=== PATIENT | male | born 1955 | race Caucasian/White ===

== ENCOUNTER → 2019-06-13 09:11 | Outpatient (BNVA) | payer OTHER, SELFPAY | PROVIDERS: Family Provider Family Medicine; PCP Family Medicine; Referring Provider Family Medicine; Visit Provider Internal Medicine Rheumatology | DX: M19.90 Unspecified osteoarthritis, unspecified site (principal); Z11.59 Encounter for screening for other viral diseases; R79.82 Elevated C-reactive protein (CRP); Z79.899 Other long term (current) drug therapy | CPT/HCPCS: 36415; 82306; 82565; 85651; 86140; 86431; 86480; 86704; 86803; 87340; 99204 ==

== ENCOUNTER 2019-06-14 10:15 | Outpatient (CLI) | payer OTHER, SELFPAY ==
--- NOTE | 2019-06-14 10:21 | XR_ITS ---
WS: [id number] RIGHT HAND: 3 VIEW(S) TECHNIQUE: PA, oblique and lateral. HISTORY: inflammatory arthritis COMPARISON: None available. No acute fracture or dislocation. Mild narrowing of the interphalangeal joints. No periarticular osteopenia. There may be some mild sof t tissue swelling around the PIP joints. Ulnar styloid is without erosions. Small osseous densities distal to the ulnar styloid may be from ol d avulsion fractures. No erosions. XR/XR hand RT min 3V* [id number] IMPRESSION: 1. Mild narrowing of the interphalangeal joints without erosions. 2. No osteopenia.
--- NOTE | 2019-06-14 10:21 | XR_ITS ---
WS: [id number] LUMBAR SPINE: 3 VIEWS TECHNIQUE: AP, lateral and L5-S1 spot. HISTORY: inflammatory arthritis COMPARISON: 09/06/2014 Mild LEFT convex curvature of the lumbar spine. Mild straightening of lumbar lordosis on the lateral projection. L4 anterolisthesis by 5.1 mm. Severe degenerative disc disease at L4-5 and moderate at L5 -S1. No fractures. Facet joint arthropathy is moderate at L5-S1. Pedicles are all identified. Again n oted is very minimal sclerosis along the SI joints. XR/XR lumbar spine 2-3V* [id number] IMPRESSION: 1. Mild degenerative spondylosis lumbar spine. 2. L4 anterolisthesis by 5.1 mm. 3. Degenerative disc disease significant at L4-5 and L5-S1 with mild progressi on since 2014.
--- NOTE | 2019-06-14 10:21 | XR_ITS ---
WS: [id number] RIGHT SHOULDER: 3 VIEW(S) TECHNIQUE: Internal and external rotation with Y view. HISTORY: inflammatory arthritis COMPARISON: None available. No fracture or dislocation or soft tissue abnormality. Mild narrowing of the AC joint. There is also mild narrowing of the glenohumeral joint. Moderate size osteophyte from the medial inferior humeral head abutting the glenoid. No erosions. XR/XR shoulder RT min 2V* [id number] IMPRESSION: Mild changes of osteoarthritis at the AC joint and glenohumeral joint.
--- NOTE | 2019-06-14 10:21 | XR_ITS ---
WS: [id number] RIGHT KNEE: 3 VIEW(S) TECHNIQUE: AP, oblique(s) and lateral. HISTORY: inflammatory arthritis COMPARISON: None available. No fracture or dislocation. No joint space narrowing or osteophytes. Fragmentation of the anterior tibial tubercle. Probably due to an old injury with healing. No acute f indings. Small suprapatellar effusion. XR/XR knee RT 3V* [id number] IMPRESSION: 1. Small suprapatellar effusion can be associated with inflammatory arthritis. 2. No erosions or significant joint space narrowing.
--- NOTE | 2019-06-14 10:21 | XR_ITS ---
WS: [id number] LEFT HAND: 3 VIEW(S) TECHNIQUE: PA, oblique and lateral. HISTORY: inflammatory arthritis COMPARISON: None available. No acute fracture or dislocation. No soft tissue or bone abnormality. No periarticular osteopenia or erosions. Indeterminate for mild soft tissue swelling at the PIP joint s. No ulnar styloid erosion. XR/XR hand LT min 3V* [id number] IMPRESSION: No significant changes associated with inflammatory arthritis.
--- NOTE | 2019-06-14 10:21 | XR_ITS ---
WS: [id number] CERVICAL SPINE 3 VIEWS HISTORY: inflammatory arthritis COMPARISON: None available. C3 retrolisthesis by 2.2 mm. Multilevel mild to moderate facet joint arthropathy and disc space narro wing. No fractures or bone destruction. Lateral masses are aligned and the odontoid is intact. XR/XR cervical spine 3V* [id number] IMPRESSION: Mild to moderate cervical spondylosis. No fractures.
--- NOTE | 2019-06-14 10:21 | XR_ITS ---
WS: [id number] PELVIS: AP VIEW SUBMITTED HISTORY: inflammatory arthritis COMPARISON: None available. Bones and soft tissues of the pelvis are intact. No fracture or dislocation. Mild sclerosis along the SI joints, LEFT greater than RIGHT. No erosions. No enthesopathies. Soft tissue calcifications are p robably phleboliths. Mild bilateral hip joint arthritis. XR/XR pelvis 1-2V* 10630 IMPRESSION: Minimal focal sclerosis along the SI joints, LEFT greater than RIGHT without er osions.
== END 2019-06-14 10:16 | disposition home or self-care (01) ==
LOC: WPI 10:19
PROVIDERS: Family Provider Family Medicine; PCP Family Medicine; Referring Provider Family Medicine; Visit Provider Internal Medicine Rheumatology
DX: M19.011 Primary osteoarthritis, right shoulder (principal); M47.896 Other spondylosis, lumbar region; M47.897 Other spondylosis, lumbosacral region; M25.461 Effusion, right knee; M47.892 Other spondylosis, cervical region
CPT/HCPCS: 72040; 72100; 72170; 73030; 73130; 73562

== ENCOUNTER → 2020-01-08 14:12 | Outpatient (BNVA) | payer BC, SELFPAY | PROVIDERS: Family Provider Family Medicine; PCP Family Medicine; Visit Provider Nurse Practitioner Family | DX: Z11.59 Encounter for screening for other viral diseases (principal) | CPT/HCPCS: 87635 ==

== ENCOUNTER 2020-04-22 09:17 | Emergency (ER) | payer BC, SELFPAY ==
[2020-04-22 09:25] VITALS: BP 165/80; PULSE 68; RESP 18; TEMP 36.3; O2SAT 97; BMI 27.7
[2020-04-22 09:33] VITALS: BP 139/85; PULSE 67; RESP 18; O2SAT 97
--- NOTE | 2020-04-22 09:56 | W.ED.CHESTPA ---
HPI - Chest Pain General: Chief Complaint: Chest Pain Stated Complaint: CP Time Seen by Provider: 04/22/20 09:24 History of Present Illness: HPI narrative: 64-year-old male presents to the emergency room with complaint of right-sided chest pain and right lower rib pain with cough movement or episodes of sneezing. A week ago prior to this patient had some chest discomfort with nausea vomiting and diarrhea that seemed to resolve but he still has some right lower rib pain. No further fever sweats or chills he has a slight cough but it is not been productive. He notes that when he first gets up in the morning he is more stiff than usual. He was given nitro for this but that did not seem to help he actually swallowed the sublingual nitro pill and it made him nauseous and he threw up. He has been seen by cardiology and was supposed to be getting a stress test but that has not yet been scheduled. He notices the pain is worse with deep inspiration and with movement. He has not had any rash. MD complaint: chest discomfort Onset (ago): day(s) Timing of current episode: episodic Onset: during rest and during exertion Pain location: right chest Pain radiation: none Severity: moderate Quality: tightness and aching Relieving factors: nothing Exacerbating factors: inspiration and movement Associated symptoms: Deny abdominal pain, dyspnea, fever(s), nausea or vomiting Review of Systems Const: Reports: body aches; Denies: fever(s) or chills ENMT: Denies: throat pain, ear or mastoid pain, nasal discharge or nasal congestion Card: Denies: chest pain, edema, dyspnea on exertion or orthopnea Resp: Reports: non-productive cough; Denies: dyspnea or productive cough GI: Denies: abdominal pain, nausea, vomiting, hematemesis, coffee ground emesis, diarrhea, constipation, bloating, hematochezia or melena : Denies: flank pain, dysuria, urinary frequency or urinary urgency Skin/Breast: Denies: rash or pruritus PFSH ED PFSH: Medical History (Updated 04/22/20 @ 13:14 by Som Del Rio DO) Arthralgia of back Arthralgia of both hands Arthralgia of cervical spine Degenerative joint disease (DJD) of lumbar spine Erectile dysfunction Shoulder pain with history of repair of rotator cuff Surgical History H/O arthroscopy of right knee History of arthroscopy of right shoulder Family History Unknown Arthritis Hypertension Father Cancer Denies family history of Systemic lupus erythematosus, unspecified Rheumatoid arthritis Diabetes CAD (coronary artery disease) Stroke Social History Smoking and tobacco status: never smoked Alcohol intake: never Marital status: History of recent travel: No Physical Exam Const: COMMON NORMALS: no acute distress GENERAL APPEARANCE: cooperative and comfortable ORIENTATION/CONSCIOUSNESS: Yes awake, Yes oriented to person, Yes oriented to place and Yes oriented to time Eye: COMMON NORMALS: Equal, round and reactive pupils present, EOMs intact bilaterally, conjunctivae normal and no scleral icterus CONJUNCTIVA: Yes conjunctivae normal PUPIL: Yes Equal, round and reactive pupils present Neck/C-Spine: COMMON NORMALS: no JVD Lymph: LYMPHATIC: no lymphadenopathy noted and no lymphedema noted Resp: COMMON NORMALS: normal respiratory effort, No retractions, No use of accessory muscles and clear to auscultation bilaterally AUSCULTATION: clear to auscultation bilaterally Cardio: COMMON NORMALS: no JVD, regular rate, regular rhythm and No murmurs present (Cardio) RATE: regular rate RHYTHM: regular rhythm GI: COMMON NORMALS: Soft to palpation and No hepatosplenomegaly present AUSCULTATION: Yes normoactive bowel sounds PALPATION: Yes Soft to palpation, No Tenderness to palpation present (GI), No Guarding due to palpation present (GI) and Yes No hepatosplenomegaly present Extremity: COMMON NORMALS: normal to inspection, capillary refill normal, no clubbing, cyanosis or edema, no calf tenderness and no pedal edema Neuro: SENSORIUM/ORIENTATION: Yes oriented to person, Yes oriented to place and Yes oriented to time Skin: COMMON NORMALS: no rashes or lesions noted GENERAL SKIN EXAM: no rashes or lesions noted Course Vital Signs: Vital signs: Vital Signs Temperature 97.4 F L 04/22/20 09:25 Pulse Rate 67 04/22/20 09:33 Respiratory Rate 18 04/22/20 09:33 Blood Pressure 139/85 04/22/20 09:33 Pulse Oximetry 97 04/22/20 09:33 MDM - Chest Pain MDM Narrative: Medical decision making narrative: Reviewed findings with the patient his CTA is negative he does have a pending PCR for Covid. Discussed limiting antibody probably will not be very helpful as its not definitive to place him on a timeframe there tends to be a large number of crossover reactions so cannot even be certain that it reflects previous infection additionally it is unknown the level at which immunity is confirmed and it is not a quantitative test at this point. I recommend that he follow-up with Dr. Browning his primary care doctor his C RP is still elevated he has had problems with this in the past he has seen rheumatology I suspect he may need to see them again to reevaluate give him short-term pain medications to him for management of symptoms. Lab Data: Attestation: I reviewed the patient's lab results. Labs: Lab Results 04/22/20 04/22/20 04/22/20 Range/Units 09:50 09:50 09:50 WBC 6.0 (4.0-10.0) 10^3/ uL RBC 4.69 (4.1-5.3) 10^6/u L Hgb 13.9 (11.7-16.6) g/dL Hct 42.8 (42.0-52.0) % MCV 91.3 (80-94) fL MCH 29.6 (28.0-34.0) pg MCHC 32.5 (30.0-36.0) g/dL RDW 13.6 (12.1-15.1) % Plt Count 246 (130-400) 10^3/c mm MPV 9.7 (7.4-10.4) fL Neut % (Auto) 68.8 % Lymph % (Auto) 17.4 % Elbert % (Auto) 11.6 % Eos % (Auto) 1.2 % Baso % (Auto) 0.8 % Neut # (Auto) 4.14 (1.8-7.7) 10^3/u L Lymph # (Auto) 1.1 (0.8-4.8) 10^3/u L Elbert # (Auto) 0.7 (0.2-0.9) 10^3/u L Eos # (Auto) 0.1 (0.0-0.8) 10^3/u L Baso # (Auto) 0.1 (0.0-0.1) 10^3/u L Nucleated RBC % (a uto) 0 % Nucleated RBCs # 0.0 /100WBC Sodium 138 (136-145) mmol/L Potassium 4.5 (3.5-5.1) mmol/L Chloride 100 (98-107) mmol/L Carbon Dioxide 28 (22-29) mmol/L Anion Gap 14.5 (5-19) BUN 15 (8-23) mg/dL Creatinine 1.0 (0.7-1.2) mg/dL GFR Calculation 75.2 L (90-130) mL/min Glucose 112 (65-115) mg/dL Calculated Osmolal ity 288 (285-295) mOsm/k g Calcium 9.2 (8.5-10.5) mg/dL Total Bilirubin 0.3 (0.15-1.2) mg/dL AST 30 (0-40) U/L ALT 72 H (0-41) U/L Alkaline Phosphata se 116 (40-130) IU/L Creatine Kinase 101 (39-308) U/L Troponin T Baselin e 8 (0-15) ng/L Troponin T 120 Min [place] (0-15) ng/L Delta Troponin T (0-10) ABS# C-Reactive Protein 56.3 H (0.0-4.9) mg/L Total Protein 7.1 (6.6-8.7) g/dL Albumin 4.2 (3.5-5.2) g/dL Globulin 2.9 (1.3-4.6) g/dL Urine Color (Yellow) Urine Appearance (CLEAR) Urine pH (5-7) Ur Specific Gravit y (1.005-1.030) Urine Protein (Negative) Urine Glucose (UA) (Normal) Urine Ketones (Negative) Urine Blood (Negative) Urine Nitrate (Negative) Urine Bilirubin (Negative) Urine Urobilinogen (Negative) mg/dL Ur Leukocyte Nguyen ase (Negative) 04/22/20 04/22/20 Range/Units 10:34 11:50 WBC (4.0-10.0) 10^3/ uL RBC (4.1-5.3) 10^6/u L Hgb (11.7-16.6) g/dL Hct (42.0-52.0) % MCV (80-94) fL MCH (28.0-34.0) pg MCHC (30.0-36.0) g/dL RDW (12.1-15.1) % Plt Count (130-400) 10^3/c mm MPV (7.4-10.4) fL Neut % (Auto) % Lymph % (Auto) % Elbert % (Auto) % Eos % (Auto) % Baso % (Auto) % Neut # (Auto) (1.8-7.7) 10^3/u L Lymph # (Auto) (0.8-4.8) 10^3/u L Elbert # (Auto) (0.2-0.9) 10^3/u L Eos # (Auto) (0.0-0.8) 10^3/u L Baso # (Auto) (0.0-0.1) 10^3/u L Nucleated RBC % (a uto) % Nucleated RBCs # /100WBC Sodium (136-145) mmol/L Potassium (3.5-5.1) mmol/L Chloride (98-107) mmol/L Carbon Dioxide (22-29) mmol/L Anion Gap (5-19) BUN (8-23) mg/dL Creatinine (0.7-1.2) mg/dL GFR Calculation (90-130) mL/min Glucose (65-115) mg/dL Calculated Osmolal ity (285-295) mOsm/k g Calcium (8.5-10.5) mg/dL Total Bilirubin (0.15-1.2) mg/dL AST (0-40) U/L ALT (0-41) U/L Alkaline Phosphata se (40-130) IU/L Creatine Kinase (39-308) U/L Troponin T Baselin e (0-15) ng/L Troponin T 120 Min [place] 7.81 (0-15) ng/L Delta Troponin T -0.19 L (0-10) ABS# C-Reactive Protein (0.0-4.9) mg/L Total Protein (6.6-8.7) g/dL Albumin (3.5-5.2) g/dL Globulin (1.3-4.6) g/dL Urine Color Straw (Yellow) Urine Appearance Clear (CLEAR) Urine pH 6 (5-7) Ur Specific Gravit y 1.005 (1.005-1.030) Urine Protein Neg (Negative) Urine Glucose (UA) Norm (Normal) Urine Ketones Negative (Negative) Urine Blood Neg (Negative) Urine Nitrate Negative (Negative) Urine Bilirubin Neg (Negative) Urine Urobilinogen Norm (Negative) mg/dL Ur Leukocyte Nguyen ase Negative (Negative) Discharge Plan Discharge Patient Disposition: Home Clinical Impression: Arthralgia of back, Degenerative joint disease (DJD) of lumbar spine, Atypical chest pain, Suspected 2019-nCoV infection Condition: Stable Prescriptions: New Percocet 5-325 mg tablet 1 tab PO Q6H PRN (Reason: pain) Qty: 20 RF: 0 No Action betamethasone acet,sod phos [Celestone Soluspan] 6 mg/mL suspension 6 mg intra-articular ONCE PRN (Reason: pain (scale score 1-3)) Qty: 1 RF: 0 lidocaine (PF) 10 mg/mL (1 %) solution 10 mg intra-articular ONCE PRN (Reason: anesthesia) Qty: 2 RF: 0 cod liver oil Oil 5 ml PO DAILY RF: 0 doxycycline hyclate 100 mg tablet 100 mg PO BID RF: 0 sildenafil 100 mg tablet See Rx Instructions .Route .COMPLEX Qty: 20 RF: 6 multivitamin Tablet 1 tab PO DAILY RF: 0 ibuprofen 200 mg Tablet 200 mg PO Q6H PRN (Reason: Pain) RF: 0 nitroglycerin 0.4 mg tablet, sublingual 0.4 mg sublingual Q5M PRN (Reason: CHEST PAINS) RF: 0 Claritin 10 mg Tablet 5 mg PO BID RF: 0 Vitamin C 1 mg PO DAILY RF: 0 fluticasone furoate 50 mcg nasal BID RF: 0 magnesium 1 tab PO DAILY RF: 0 Discharge Orders: Discharge Order (Routine); Ordered 04/22/20 Ordered By: Som Del Rio Referrals: Barrett Gamboa DO [Primary Care Provider] - Discharge Diet: Usual diet Discharge Activity: Resume usual activity Coding Level of Care Code ED Groundhand for Chg Fwd Exam Comprehensive
--- NOTE | 2020-04-22 10:11 | CT_ITS ---
WS: [id number] CT CHEST ANGIOGRAPHY WITH REFORMATS HISTORY: chest pain TECHNIQUE: Contiguous axial images are obtained through the chest during arterial injection of intrav enous contrast. Images are reconstructed to evaluate the pulmonary arteries. MIP imaging also reviewe d. All CT scans at [facility] use at least one of these dose optimization techniques: aut omated exposure control; mA and/or kV adjustment per patient size (includes targeted exams where dose is matched to clinical indication); or iterative reconstruction. CONTRAST: Omnipaque 350; 95 mL IV. DLP: 590.27 mGy.cm COMPARISON: None available. Excellent opacification of the pulmonary arteries. No filling defects or pulmonary emboli are identif ied. Normal size pulmonary artery. Very mild ectasia of the thoracic aorta. No aneurysmal dilatation. The RIGHT heart chambers are slightly enlarged. No pericardial or pleural effusion. Bilateral lower lobe areas of linear atelectasis. No pneumonia. No mediastinal or hilar adenopathy. Hepatic steatosis. 12 mm cyst in the central liver. Liver is also enlarged. No adrenal mass. Spleen i s normal size. Small hiatal hernia. Mild thoracic spondylosis. CT/CT angio chest PE protcl [id number] IMPRESSION: 1. No pulmonary embolism. 2. Subsegmental atelectasis bilateral lower lobes. 3. Mild atherosclerosis aorta. 4. Mild hepatic steatosis and hepatomegaly with a central hepatic cyst. 5. Small hiatal hernia. 6. Mild RIGHT heart enlargement.
--- NOTE | 2020-04-22 10:11 | ECG_ITS ---
[facility] Test Date: 2020-04-22 Pat Name: Ron Davila Department: Room: Gender: Male Electroencephalographic Technician: : 1955 Requested By: Som Shah Order Number: [id number] Cheryl MD: Lawanda Chan M.D. Measurements Intervals [place] Rate: 70 P: 47 [place]: 166 QRS: 47 QRSD: 81 T: 42 QT: 374 QTc: 405 Interpretive Statements SINUS RHYTHM WITH OCCASIONAL SUPRAVENTRICULAR PREMATURE COMPLEXES POSSIBLE LEFT ATRIAL ENLARGEMENT [-0.1mV P WAVE IN V1/V2] MODERATE T-WAVE ABNORMALITY, CONSIDER ANTEROLATERAL ISCHEMIA [-0.1+ mV T WAVE IN V3-V6] No previous ECG available for comparison Electronically Signed On 04-22-2020 21:43:02 LANDING SIGNAL OFFICER by Lawanda Chan M.D. [id number] f
[2020-04-22 10:20] LABS: Basophils # 0.1 10^3/uL (0.0-0.1); Basophils % 0.8 %; Eosinophils # 0.1 10^3/uL (0.0-0.8); Eosinophils % 1.2 %; Hematocrit 42.8 % (42.0-52.0); Hemoglobin 13.9 g/dL (11.7-16.6); Lymphocytes # 1.1 10^3/uL (0.8-4.8); Lymphocytes % 17.4 %; Mean Corpuscular HGB Conc 32.5 g/dL (30.0-36.0); Mean Corpuscular Hemoglobin 29.6 pg (28.0-34.0); Mean Corpuscular Volume 91.3 fL (80-94); Mean Platelet Volume 9.7 fL (7.4-10.4); Monocytes # 0.7 10^3/uL (0.2-0.9); Monocytes % 11.6 %; Neutrophils # 4.14 10^3/uL (1.8-7.7); Neutrophils % 68.8 %; Nucleated Red Blood Cells % 0 %; Platelet Count 246 10^3/cmm (130-400); Red Blood Count 4.69 10^6/uL (4.1-5.3); Red Cell Distribution Width 13.6 % (12.1-15.1)
[2020-04-22 10:30] LABS: Alanine Aminotransferase 72 U/L (0-41); Albumin Level 4.2 g/dL (3.5-5.2); Alkaline Phosphatase 116 IU/L (40-130); Anion Gap 14.5 (5-19); Aspartate Amino Transferase 30 U/L (0-40); Blood Urea Nitrogen 15 mg/dL (8-23); C Reactive Protein 56.3 mg/L (0.0-4.9); Calcium 9.2 mg/dL (8.5-10.5); Carbon Dioxide 28 mmol/L (22-29); Chloride 100 mmol/L (98-107); Creatine Phosphokinase 101 U/L (39-308); Globulin 2.9 g/dL (1.3-4.6); Glomerular Filtration Rate 75.2 mL/min (90-130); Glucose 112 mg/dL (65-115); Osmolality Calculated 288 mOsm/kg (285-295); Potassium 4.5 mmol/L (3.5-5.1); Sodium 138 mmol/L (136-145); Total Bilirubin 0.3 mg/dL (0.15-1.2); Total Protein 7.1 g/dL (6.6-8.7)
[2020-04-22 10:31] LABS: Troponin(5th) Baseline 8 ng/L (0-15)
[2020-04-22 10:37] LABS: Add Urine Microscopic? NO
[2020-04-22 10:51] LABS: Bilirubin Urine Neg (Negative); Blood Urine Neg (Negative); Glucose Urine UA Norm (Normal); Ketones Urine Negative (Negative); Leukocyte Esterase Urine Negative (Negative); Nitrate Urine Negative (Negative); Protein Urine Neg (Negative); Specific Gravity, Urine 1.005 (1.005-1.030); Urine Appearance Clear (CLEAR); Urine Color Straw (Yellow); Urobilinogen Urine Norm (Negative); pH Urine 6 (5-7)
--- NOTE | 2020-04-22 11:06 | DCPLANNER ---
wholesale manager was asked to call [facility] to confirm if a stress test had been ordered for patient. wholesale manager spoke with Luann, was told that a stress test had been ordered for patient, it is pending waiting on insurance approval. wholesale manager informed the ED physician that it is waiting insurance approval.
--- NOTE | 2020-04-22 11:40 | PC.NURSE ---
Read and agree with assessment.
[2020-04-22] MEDS: iohexol 350 mg/mL 100 mL Btl IV (11:59)
--- NOTE | 2020-04-22 12:11 | ECG_ITS ---
[facility] Test Date: 2020-04-22 Pat Name: Ron Davila Department: Room: Gender: Male Strategic Communications Manager: : 1955 Requested By: Som Shah Order Number: [id number] Cheryl MD: Lawanda Chan M.D. Measurements Intervals [place] Rate: 58 P: 35 IN: 173 QRS: 48 QRSD: 86 T: 14 QT: 420 QTc: 413 Interpretive Statements SINUS BRADYCARDIA WITH OCCASIONAL SUPRAVENTRICULAR PREMATURE COMPLEXES MODERATE T-WAVE ABNORMALITY, CONSIDER ANTEROLATERAL ISCHEMIA [-0.1+ mV T WAVE IN V3-V6] No previous ECG available for comparison Electronically Signed On 04-22-2020 21:51:32 RACETRACK STEWARD by Lawanda Chan M.D. [id number]
[2020-04-22 12:22] LABS: Troponin 5 2HR 7.81 ng/L (0-15)
[2020-04-22 12:28] LABS: Troponin 5 2HR Delta -0.19 ABS# (0-10)
[2020-04-22 13:35] VITALS: BP 147/94; PULSE 75; RESP 16; O2SAT 97
[2020-04-24 09:38] LABS: Quest SARS-CoV-2 RNA NOT DETECTED (NOT DETECTED)
--- NOTE | 2020-04-24 16:19 | PC.NURSE ---
pt was contacted via phone and given the results of his COVID test
== END 2020-04-22 13:36 | disposition home or self-care (01) ==
PROVIDERS: Emergency Provider Family Medicine; PCP Family Medicine
DX: R07.89 Other chest pain (principal); Z20.828 Contact with and (suspected) exposure to other viral communicable diseases; M47.816 Spondylosis without myelopathy or radiculopathy, lumbar region; M54.9 Dorsalgia, unspecified
CPT/HCPCS: 12345; 71275; 80053; 81003; 82550; 84484; 85025; 86140; 87635; 93005; 99282; 99283; Q9967

== ENCOUNTER 2020-04-25 12:13 | Observation (INO) | payer BC, SELFPAY ==
[2020-04-25] VITALS (11 sets, daily range): BP systolic 128–172; BP diastolic 80–110; PULSE 62–78; RESP 18–24; TEMP 36.3–37.2; O2SAT 93–97; BMI 33.0
--- NOTE | 2020-04-25 12:18 | XR_ITS ---
WS: [id number] Exam: XR chest 1V portable [id number] Date/Time of Exam: 04/25/2020 12:18 PM Reason For Exam: chest pain Comparison 09/14/2016. The lungs are clear and fully expanded. No pleural effusions. Normal cardiomediastinal structures and bony elements. Bibasal plaque atelectasis. XR/XR chest 1V portable [id number] IMPRESSION: 1. No acute cardiopulmonary finding.
--- NOTE | 2020-04-25 12:18 | ECG_ITS ---
[facility] Test Date: 2020-04-25 Pat Name: Ron Davila Department: Room: Gender: Male Industrial Controls Technician: : 1955 Requested By: Мария Shah Order Number: [id number] Cheryl MD: Lawanda Chan M.D. Measurements Intervals [place] Rate: 62 P: 60 MS: 146 QRS: 53 QRSD: 91 T: -51 QT: 400 QTc: 408 Interpretive Statements SINUS RHYTHM POSSIBLE LEFT ATRIAL ENLARGEMENT [-0.1mV P WAVE IN V1/V2] MODERATE T-WAVE ABNORMALITY, CONSIDER ANTEROLATERAL ISCHEMIA [-0.1+ mV T WAVE IN V3-V6] MODERATE T-WAVE ABNORMALITY, CONSIDER INFERIOR ISCHEMIA [-0.1+ mV T WAVE IN II/aVF] Compared to ECG 04/22/2020 12:01:17 Sinus bradycardia no longer present T-wave abnormality still present Possible ischemia still present Electronically Signed On 04-25-2020 13:24:24 RETURNING OFFICER by Lawanda Chan M.D. [id number]
[2020-04-25 12:58] LABS: Basophils # 0.1 10^3/uL (0.0-0.1); Basophils % 0.5 %; Hematocrit 40.6 % (42.0-52.0); Hemoglobin 13.2 g/dL (11.7-16.6); Lymphocytes % 9.9 %; Mean Corpuscular HGB Conc 32.5 g/dL (30.0-36.0); Mean Corpuscular Hemoglobin 29.4 pg (28.0-34.0); Mean Corpuscular Volume 90.4 fL (80-94); Mean Platelet Volume 9.2 fL (7.4-10.4); Monocytes # 0.6 10^3/uL (0.2-0.9); Monocytes % 5.6 %; Neutrophils # 8.13 10^3/uL (1.8-7.7); Neutrophils % 83.2 %; Nucleated Red Blood Cells % 0 %; Platelet Count 309 10^3/cmm (130-400); Red Blood Count 4.49 10^6/uL (4.1-5.3); Red Cell Distribution Width 13.7 % (12.1-15.1); White Blood Count 9.8 10^3/uL (4.0-10.0)
[2020-04-25 13:12] LABS: INR 0.93 (0.8-1.2)
[2020-04-25 13:27] LABS: Alanine Aminotransferase 56 U/L (0-41); Albumin Level 3.8 g/dL (3.5-5.2); Alkaline Phosphatase 100 IU/L (40-130); Blood Urea Nitrogen 17 mg/dL (8-23); Calcium 9.3 mg/dL (8.5-10.5); Carbon Dioxide 28 mmol/L (22-29); Chloride 101 mmol/L (98-107); Glomerular Filtration Rate 75.2 mL/min (90-130); Glucose 114 mg/dL (65-115); Lipase 35 U/L (13-60); NT Pro B Type Natriuretic Pept 995 pg/mL (0-125); Osmolality Calculated 288 mOsm/kg (285-295); Sodium 138 mmol/L (136-145); Total Bilirubin 0.2 mg/dL (0.15-1.2); Total Protein 7.8 g/dL (6.6-8.7)
[2020-04-25 13:28] LABS: Anion Gap 13.8 (5-19); Aspartate Amino Transferase 31 U/L (0-40); Potassium 4.8 mmol/L (3.5-5.1)
[2020-04-25 13:29] LABS: Troponin(5th) Baseline 10 ng/L (0-15)
--- NOTE | 2020-04-25 14:06 | USCV_ITS ---
Ron Davila Age: 64 Gender: M : 1955 Exam Date: 04/25/2020 16:48 Ordering Phys: Dhruv Leach M.D ([email or web address]) Technologist: Geri Soto Exam Location: [facility] [place] Indication: CHEST PAIN BP: 172 / 102 HR: 73 Rhythm: Sinus Technical Quality: Adequate MEASUREMENTS (Male / Female) Normal Values 2D ECHO LV Diastolic Diameter PLAX 4.8 cm 4.2 - 5.9 / 3.9 - 5.3 cm LV Systolic Diameter PLAX 3.3 cm LV Chamber Size 3.9 cm IVS Diastolic Thickness 1.2 cm 0.6 - 1.0 / 0.6 - 0.9 cm IVS Systolic Thickness 1.8 cm LVPW Diastolic Thickness 1.4 cm 0.6 - 1.0 / 0.6 - 0.9 cm LVPW Systolic Thickness 2.1 cm RV Chamber Size 3.4 cm LVOT Diameter 2.1 cm LV Ejection Fraction 2D Teich 59.6 % LV Ejection Fraction MOD 2C 60.6 % LV Ejection Fraction 2C AL 61.5 % LA Diameter 3.8 cm LA Width 2.9 cm LA Height 3.9 cm RA Width 3.8 cm RA Height 3.6 cm Aorta at Sinotubular Diameter 4.3 cm M-MODE LV Diastolic Diameter MM 5.1 cm 4.2 - 5.9 / 3.9 - 5.3 cm LV Systolic Diameter MM 2.8 cm LV Ejection Fraction MM Teich 75.4 % IVS Diastolic Thickness MM 1.1 cm 0.6 - 1.0 / 0.6 - 0.9 cm IVS Systolic Thickness MM 1.8 cm LVPW Diastolic Thickness MM 1.5 cm 0.6 - 1.0 / 0.6 - 0.9 cm LVPW Systolic Thickness MM 1.9 cm RV Diastolic Diameter MM 1.8 cm Aortic Annulus Diameter 3.5 cm LA Ao Ratio MM 1.3 MV E Point Septal Separation 0.4 cm DOPPLER AV Peak Velocity 137.0 cm/s LVOT Peak Velocity 107.0 cm/s AV Area Cont Eq vti 3.1 cm squared AV Area Cont Eq pk 2.7 cm squared MV Area PHT 5.0 cm squared Mitral E to A Ratio 1.1 MV E' Velocity 38.5 cm/s Mitral E to MV E' Ratio 7.1 Mitral E to LV E' Lateral Ratio 6.7 Mitral E to LV E' Septal Ratio 7.6 TR Peak Velocity 107.7 cm/s TR Peak Gradient 4.6 mmHg TR Mean Velocity 74.5 cm/s TR Mean Gradient 2.4 mmHg TR Velocity Time Integral 24.7 cm TV Peak E Velocity 77.0 cm/s Right Atrial Pressure 5.0 mmHg Pulmonary Artery Systolic Pressu 9.6 mmHg PV Peak Velocity 82.0 cm/s RV Acceleration Time 0.2 s RV Ejection Time 0.3 s RV AcT/ET 0.5 FINDINGS Left Ventricle Normal left ventricular size, systolic function and wall thickness, with no regional wall motion abnormalities. LVEF is 55 to 60%. Normal left ventricular wall thickness. Normal diastolic filling pattern. Right Ventricle The right ventricle is borderline dilated with normal function. Right Atrium The right atrium is normal in size. Left Atrium The left atrium is normal in size. Mitral Valve Structurally normal mitral valve without significant stenosis or prolapse. There is no mitral regurgitation. Aortic Valve Structurally normal aortic valve without significant sclerosis or stenosis. There is no aortic regurgitation. Tricuspid Valve Structurally normal tricuspid valve without significant stenosis or regurgitation. Insufficient TR jet to calculate RVSP. RA Pressure is 5 to 10 mmHg. Pulmonic Valve Structurally normal pulmonic valve without significant stenosis. There is no pulmonic regurgitation. Pericardium Normal pericardium without effusion. Aorta Aortic root is dilated. CONCLUSIONS LV systolic function is normal with EF of 55 to 60%. Normal diastolic function. Right ventricle is borderline dilated with normal function. RA pressure is 5 to 10 mmHg. Aortic root is dilated. No comparison studies are available. Dhruv Leach MD (Electronically Signed) Final Date: 26 April 2020 12:36 S
--- NOTE | 2020-04-25 14:18 | ECG_ITS ---
[facility] Test Date: 2020-04-25 Pat Name: Ron Davila Department: Room: Gender: Male Distributor Cleaner: : 1955 Requested By: Мария Shah Order Number: [id number] Cheryl MD: Lawanda Chan M.D. Measurements Intervals [place] Rate: 62 P: 26 [place]: 154 QRS: 44 QRSD: 90 T: 87 QT: 405 QTc: 413 Interpretive Statements SINUS RHYTHM WITH OCCASIONAL SUPRAVENTRICULAR PREMATURE COMPLEXES ST DEVIATION AND MODERATE T-WAVE ABNORMALITY, CONSIDER ANTEROLATERAL ISCHEMIA [-0.1+ mV T WAVE IN V3-V6] Compared to ECG 04/25/2020 12:31:29 No significant changes Electronically Signed On 04-25-2020 20:15:00 MATCH UP WORKER by Lawanda Chan M.D. [id number]
--- NOTE | 2020-04-25 15:04 | W.ED.CHESTPA ---
HPI - Chest Pain General: Chief Complaint: Chest Pain Stated Complaint: cp Time Seen by Provider: 04/25/20 12:16 History of Present Illness: HPI narrative: This patient is a 64-year-old male who comes in today with chest pain. Has been having chest pain off and on which initially really sounded musculoskeletal in nature. He was seen in the ER and had an evaluation that did not show any obvious cause. He was started on prednisone with the thought that it was musculoskeletal or pleuritic. He was to follow-up for a stress test but had not been able to get in and have one yet. Last night he [place] and started having chest pain or shortness of breath. He saw Dr. Leach today in the office and was sent here to be admitted for cardiac cath. He is a very healthy and fit, athletic gentleman who has not had any heart history in the past. complaint: chest pain Onset (ago): week(s) Timing of current episode: episodic Onset: during exertion Pain location: substernal Severity: severe Quality: tightness and heaviness Relieving factors: nitroglycerin and rest Exacerbating factors: exertion Context: recent illness (GI symptoms few weeks ago. Had a negative Covid test last week) Associated symptoms: Deny abdominal pain, dyspnea, fever(s), nausea or vomiting Review of Systems General: Reports: 10 or more systems reviewed and unremarkable except in HPI and below Const: Reports: fatigue and malaise; Denies: fever(s) or chills Eyes: Denies: change in vision ENMT: Denies: odynophagia Card: Reports: chest pain and dyspnea on exertion; Denies: swelling of feet/ankles Resp: Denies: dyspnea, productive cough or non-productive cough GI: Denies: abdominal pain, nausea or vomiting : Denies: flank pain Musc: Denies: neck pain or back pain Skin/Breast: Denies: rash Neuro: Denies: headache(s), numbness in extremities or weakness in extremities Luis/Lymph: Denies: easy bruising or easy bleeding PFSH ED PFSH: Medical History Arthralgia of back Arthralgia of both hands Arthralgia of cervical spine Degenerative joint disease (DJD) of lumbar spine Erectile dysfunction Shoulder pain with history of repair of rotator cuff Surgical History H/O arthroscopy of right knee History of arthroscopy of right shoulder Family History Unknown Arthritis Hypertension Father Cancer Denies family history of Systemic lupus erythematosus, unspecified Rheumatoid arthritis Diabetes CAD (coronary artery disease) Stroke Social History Smoking and tobacco status: never smoked Alcohol intake: never Marital status: History of recent travel: No Physical Exam Const: COMMON NORMALS: no acute distress, patient oriented x3, no limitations and alert GENERAL APPEARANCE: cooperative and comfortable HENMT: HEAD & SCALP: normal to inspection FACE & SINUS: normal facial exam Eye: GENERAL EYE: appearance normal, both eyes and all related structures Neck/C-Spine: COMMON NORMALS: supple, no meningeal signs and no JVD Chest: COMMONS NORMALS: normal inspection of the chest Resp: COMMON NORMALS: normal respiratory effort, No use of accessory muscles and clear to auscultation bilaterally AUSCULTATION: clear to auscultation bilaterally Cardio: COMMON NORMALS: no JVD, regular rate, regular rhythm and No murmurs present (Cardio) RATE: regular rate RHYTHM: regular rhythm GI: COMMON NORMALS: Normal to inspection, nondistended, normoactive bowel sounds present, Soft to palpation and non-tender INSPECTION: Yes normal to inspection AUSCULTATION: Yes normoactive bowel sounds PALPATION: Yes Soft to palpation Back/Pelvis: COMMON NORMALS: thoracic and lumbar spine normal to inspection Extremity: COMMON NORMALS: normal to inspection Neuro: COMMON NORMALS: patient oriented x3, moves all extremities, no focal motor deficits and no sensory deficits noted SENSORIUM/ORIENTATION: Yes alert MENINGEAL SIGNS: Yes no meningeal signs Psych: COMMON NORMALS: mental status grossly normal, cooperative and normal affect Skin: COMMON NORMALS: no rashes or lesions noted and turgor normal GENERAL SKIN EXAM: no rashes or lesions noted and turgor normal Course ED course: Pain-free in the ED. he does show some flipped T waves but similar to the one he had at his other ER visit recently. Labs are pending. Dr. Leach would like him admitted and I have put in orders. Vital Signs: Vital signs: Vital Signs Temperature 97.9 F 04/25/20 12:23 Pulse Rate 65 04/25/20 14:36 Respiratory Rate 18 04/25/20 14:36 Blood Pressure 158/92 04/25/20 12:39 Pulse Oximetry 97 04/25/20 14:36 MDM - Chest Pain Lab Data: Labs: Lab Results 04/25/20 04/25/20 04/25/20 Range/Units 12:38 12:38 12:52 WBC 9.8 (4.0-10.0) 10^3/ uL RBC 4.49 (4.1-5.3) 10^6/u L Hgb 13.2 (11.7-16.6) g/dL Hct 40.6 L (42.0-52.0) % MCV 90.4 (80-94) fL MCH 29.4 (28.0-34.0) pg MCHC 32.5 (30.0-36.0) g/dL RDW 13.7 (12.1-15.1) % Plt Count 309 (130-400) 10^3/c mm MPV 9.2 (7.4-10.4) fL Neut % (Auto) 83.2 % Lymph % (Auto) 9.9 % [place] % (Auto) 5.6 % Eos % (Auto) 0.0 % Baso % (Auto) 0.5 % Neut # (Auto) 8.13 H (1.8-7.7) 10^3/u L Lymph # (Auto) 1.0 (0.8-4.8) 10^3/u L [place] # (Auto) 0.6 (0.2-0.9) 10^3/u L Eos # (Auto) 0.0 (0.0-0.8) 10^3/u L Baso # (Auto) 0.1 (0.0-0.1) 10^3/u L Nucleated RBC % (a uto) 0 % Nucleated RBCs # 0.0 /100WBC PT (12.1-14.9) SECO NDS INR (0.8-1.2) Sodium 138 (136-145) mmol/L Potassium 4.8 (3.5-5.1) mmol/L Chloride 101 (98-107) mmol/L Carbon Dioxide 28 (22-29) mmol/L Anion Gap 13.8 (5-19) BUN 17 (8-23) mg/dL Creatinine 1.0 (0.7-1.2) mg/dL GFR Calculation 75.2 L (90-130) mL/min Glucose 114 (65-115) mg/dL Calculated Osmolal ity 288 (285-295) mOsm/k g Calcium 9.3 (8.5-10.5) mg/dL Total Bilirubin 0.2 (0.15-1.2) mg/dL AST 31 (0-40) U/L ALT 56 H (0-41) U/L Alkaline Phosphata se 100 (40-130) IU/L Troponin T Baselin e 10 (0-15) ng/L NT-Pro-B Natriuret Pep 995 H (0-125) pg/mL Total Protein 7.8 (6.6-8.7) g/dL Albumin 3.8 (3.5-5.2) g/dL Globulin 4.0 (1.3-4.6) g/dL Lipase 35 (13-60) U/L 11/20/20 Range/Units 12:52 WBC (4.0-10.0) 10^3/ uL RBC (4.1-5.3) 10^6/u L Hgb (11.7-16.6) g/dL Hct (42.0-52.0) % MCV (80-94) fL MCH (28.0-34.0) pg MCHC (30.0-36.0) g/dL RDW (12.1-15.1) % Plt Count (130-400) 10^3/c mm MPV (7.4-10.4) fL Neut % (Auto) % Lymph % (Auto) % [place] % (Auto) % Eos % (Auto) % Baso % (Auto) % Neut # (Auto) (1.8-7.7) 10^3/u L Lymph # (Auto) (0.8-4.8) 10^3/u L [place] # (Auto) (0.2-0.9) 10^3/u L Eos # (Auto) (0.0-0.8) 10^3/u L Baso # (Auto) (0.0-0.1) 10^3/u L Nucleated RBC % (a uto) % Nucleated RBCs # /100WBC PT 12.70 (12.1-14.9) SECO NDS INR 0.93 (0.8-1.2) Sodium (136-145) mmol/L Potassium (3.5-5.1) mmol/L Chloride (98-107) mmol/L Carbon Dioxide (22-29) mmol/L Anion Gap (5-19) BUN (8-23) mg/dL Creatinine (0.7-1.2) mg/dL GFR Calculation (90-130) mL/min Glucose (65-115) mg/dL Calculated Osmolal ity (285-295) mOsm/k g Calcium (8.5-10.5) mg/dL Total Bilirubin (0.15-1.2) mg/dL AST (0-40) U/L ALT (0-41) U/L Alkaline Phosphata se (40-130) IU/L Troponin T Baselin e (0-15) ng/L NT-Pro-B Natriuret Pep (0-125) pg/mL Total Protein (6.6-8.7) g/dL Albumin (3.5-5.2) g/dL Globulin (1.3-4.6) g/dL Lipase (13-60) U/L Discharge Plan Discharge Prescriptions: No Action cod liver oil Oil 15 ml PO DAILY RF: 0 sildenafil 100 mg tablet See Rx Instructions .Route .COMPLEX Qty: 20 RF: 6 ascorbic acid (vitamin C) [Vitamin C] 1,000 mg Tablet 1,000 mg PO DAILY RF: 0 ibuprofen 200 mg Tablet 200 mg PO Q6H PRN (Reason: Pain) RF: 0 nitroglycerin 0.4 mg tablet, sublingual 0.4 mg sublingual Q5M PRN (Reason: CHEST PAINS) RF: 0 loratadine [Claritin] 10 mg Tablet 5 mg PO BID RF: 0 prednisone 20 mg tablet 20 mg PO . DIRECTED RF: 0 Coding Level of Care Code ED Funeral Director/Embalmer for [employer]
[2020-04-25 15:15] LABS: Troponin 5 2HR 8.28 ng/L (0-15); Troponin 5 2HR Delta -1.72 ABS# (0-10)
--- NOTE | 2020-04-25 16:28 | P.CONIM_ITS ---
Providers/Reason For Consult Attending Physician: Dhruv Leach M.D Primary Care Provider: Barrett Gamboa DO History of Present Illness History of Present Illness Ron Davila is a 64 year old male Meds/Allergies Home Medications and Allergies Home Medications Medication Instructions Recorded Confirmed Last Taken Type cod liver oil 15 ml PO DAILY ml 06/13/19 04/25/20 04/25/20 History sildenafil 100 mg tablet See Rx Instructions .ROUTE 10/25/19 04/25/20 04/21/20 Rx .COMPLEX #20 tab ascorbic acid (vitamin C) [Vitamin 1,000 mg PO DAILY 04/22/20 04/25/20 04/25/20 History C] ibuprofen 200 mg PO Q6H PRN 04/22/20 04/25/20 04/21/20 History loratadine [Claritin] 5 mg PO BID 04/22/20 04/25/20 04/22/20 History nitroglycerin 0.4 mg SUBLINGUAL Q5M PRN 04/22/20 04/25/20 04/24/20 History prednisone 20 mg PO . DIRECTED 04/25/20 04/25/20 04/25/20 History 60 mg Allergies Allergy/AdvReac Type Severity Reaction Status Date / Time hydrocodone Allergy Severe unknown Verified 04/25/20 12:25 ibuprofen Allergy Unknown Verified 04/25/20 12:25 PFSH Acute PFSH: Medical History Arthralgia of back Arthralgia of both hands Arthralgia of cervical spine Degenerative joint disease (DJD) of lumbar spine Erectile dysfunction Shoulder pain with history of repair of rotator cuff Surgical History H/O arthroscopy of right knee History of arthroscopy of right shoulder Family History Unknown Arthritis Hypertension Father Cancer Denies family history of Systemic lupus erythematosus, unspecified Rheumatoid arthritis Diabetes CAD (coronary artery disease) Stroke Social History Smoking and tobacco status: never smoked Alcohol intake: never Marital status: History of recent travel: No Vitals/I&O/Wt Last Vital Signs Temp 97.9 F 04/25/20 12:23 Pulse 65 04/25/20 15:17 Resp 18 04/25/20 15:17 BP 158/82 04/25/20 15:17 Pulse Ox 95 04/25/20 15:17 Weight last 48 hrs Weight 250 lb Coding Level of Care Code Acute Manager [facility] for [facility]
--- NOTE | 2020-04-25 16:29 | P.HP_ITS ---
Providers/Chief Complaint Admitting Physician: Dhruv Leach M.D Primary Care Provider: Barrett Gamoba DO Chief Complaint: Chest pain History of Present Illness Ron Davila is a 64 year old male with past medical history of degenerative joint disease of lumbar spine, shoulder pain with history of repair of rotator cuff was seen earlier in the month in the office for chest pain. At that time EKG had shown T wave inversions in anterolateral leads. Plan was to obtain a stress test. Patient presented to the emergency room about 3 days ago with right-sided chest pain. This was pleuritic in nature. He was discharged home with plan for seeing cardiology in office. Last night he was walking uphill outside his house when he started noticing crushing substernal chest p ain. There was radiation to the jaw and arms. Pain lasted for about 20 minutes. He got very short of breath. Patient took nitro however he had an episode of vomiting after that. He has family history of coronary artery disease. He does not smoke and is an active person at baseline. Of note patient has recently been started on prednisone as he has been having lower back pain with possible autoimmune etiology. NT proBNP performed in the ER is elevated and is 995. His EKG shows T wave inversions in the anterolateral and inferior leads. He is in sinus rhythm. Patient was sent to emergency room as his symptoms are consistent with unstable angina. Since his presentation to the hospital, his blood pressure has been elevated. He does not have a documented history of hypertension before. Review of Systems Narrative: CONSTITUTIONAL: No fever chills weight loss or gain or night sweats. [] HEENT: Normocephalic, atraumatic.[] RESPIRATORY: Significant shortness of breath, no cough, sputum, hemoptysis or wheezing.[] CARDIOVASCULAR: Has shortness of breath, chest pain, no PND, orthopnea, lower extremity edema, presyncope or syncope. [] GI: no nausea vomiting diarrhea. [] POLICE LIE[employer]ENANT PATROL: No numbness, tingling, weakness or loss of function in any part of the body. [] MUSCULOSKELETAL: No knee or joint pain or rashes. [] Medications/Allergies Home Medications Medication Instructions Recorded Confirmed Last Taken Type cod liver oil 15 ml PO DAILY ml 06/13/19 04/25/20 04/25/20 History sildenafil 100 mg tablet See Rx Instructions .ROUTE 10/25/19 04/25/20 04/21/20 Rx .COMPLEX #20 tab ascorbic acid (vitamin C) [Vitamin 1,000 mg PO DAILY 04/22/20 04/25/20 04/25/20 History C] ibuprofen 200 mg PO Q6H PRN 04/22/20 04/25/20 04/21/20 History loratadine [Claritin] 5 mg PO BID 04/22/20 04/25/20 04/22/20 History nitroglycerin 0.4 mg SUBLINGUAL Q5M PRN 04/22/20 04/25/20 04/24/20 History prednisone 20 mg PO . DIRECTED 04/25/20 04/25/20 04/25/20 History 60 mg Allergies Allergy/AdvReac Type Severity Reaction Status Date / Time hydrocodone Allergy Severe unknown Verified 04/25/20 12:25 ibuprofen Allergy Unknown Verified 04/25/20 12:25 PFSH Acute PFSH: Medical History (Updated 04/26/20 @ 08:39 by Dhruv Leach M.D) Arthralgia of back Arthralgia of both hands Arthralgia of cervical spine Degenerative joint disease (DJD) of lumbar spine Erectile dysfunction Shoulder pain with history of repair of rotator cuff Surgical History H/O arthroscopy of right knee History of arthroscopy of right shoulder Family History Unknown Arthritis Hypertension Father Cancer Denies family history of Systemic lupus erythematosus, unspecified Rheumatoid arthritis Diabetes CAD (coronary artery disease) Stroke Social History Smoking and tobacco status: never smoked Alcohol intake: never Marital status: History of recent travel: No Vitals/I&O/Wt Last Vital Signs Temp 97.9 F 04/25/20 12:23 Pulse 65 04/25/20 15:17 Resp 18 04/25/20 15:17 BP 158/82 04/25/20 15:17 Pulse Ox 95 04/25/20 15:17 Weight last 48 hrs Weight 250 lb Physical Exam Narrative: EXAM NARRATIVE: GENERAL: Patient is alert, awake and oriented x3. [] NECK: No jugular vein distension. [] HEENT: No cyanosis. No icterus. No pallor. [] HEART: Regular S1 and S2. No murmur, rub or gallop. [] LUNGS: Clear to auscultate bilaterally. [] ABDOMEN: Soft, nontender and nondistended. Positive bowel sounds. No guarding, rebound or tenderness. [] CENTRAL NERVOUS SYSTEM: Grossly nonfocal. [] EXTREMITIES: Lower extremities with no edema bilaterally. Pulses palpable in the lower extremities, both dorsalis pedis and posterior tibial. [] Data : 04/25/20 12:52 04/25/20 12:38 A&P Assessment and plan (1) Unstable angina: Status: Acute (2) Chest pain: Status: Acute (3) Arthralgia of back: Status: Acute (4) Shoulder pain with history of repair of rotator cuff: Status: Acute (5) Degenerative joint disease (DJD) of lumbar spine: Status: Acute (6) Hypertension: Status: Acute Patient has been having typical chest pain symptoms recently along with EKG changes of T wave inversions in anterolateral and inferior leads. He has significant shortness of breath. NT proBNP was elevated at 995. We will proceed with right and left heart cath with possible intervention. Trend troponin. Echocardiogram has been ordered. He has been started on prednisone for possible autoimmune etiology. We will continue with that as prescribed. CRP was significantly elevated. Aspirin and metoprolol have been started. Close monitoring of blood pressure. N.p.o. past midnight. Attestations Medical Necessity Statement*: Care expected to cross 2 midnights. Patient will undergo coronary angiography, right heart cath and possible percutaneous coronary intervention if needed tomorrow. 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
--- NOTE | 2020-04-25 17:21 | PC.NURSE ---
patient from er via wheelchair. patient hooked up to vitals. dr mg in room to discuss procedures tomorrow. admission completed. needs within reach. at bedside. no other needs identified at this time.
[2020-04-25] MEDS: aspirin 325 mg Tablet PO (18:09)
[2020-04-25] MEDS: metoprolol tartrate 50 mg Tablet PO (18:09)
--- NOTE | 2020-04-25 18:18 | ECG_ITS ---
[facility] Test Date: 2020-04-25 Pat Name: Ron Davila Department: Room: 101 Gender: Male Manager Pathology: : 1955 Requested By: Мария Shah Order Number: [id number] Cheryl MD: Lawanda Chan M.D. Measurements Intervals [place] Rate: 64 P: 46 LA: 154 QRS: 38 QRSD: 93 T: -77 QT: 392 QTc: 406 Interpretive Statements SINUS RHYTHM WITH SINUS ARRHYTHMIA POSSIBLE LEFT ATRIAL ENLARGEMENT [-0.1mV P WAVE IN V1/V2] MODERATE T-WAVE ABNORMALITY, CONSIDER ANTEROLATERAL ISCHEMIA [-0.1+ mV T WAVE IN V3-V6] MODERATE T-WAVE ABNORMALITY, CONSIDER INFERIOR ISCHEMIA [-0.1+ mV T WAVE IN II/aVF] Compared to ECG 04/25/2020 14:38:17 No significant changes Electronically Signed On 04-25-2020 20:04:26 [facility] by Lawanda Chan M.D. [id number]
[2020-04-25 19:13] LABS: Troponin 5 6HR 8.46 ng/L (0-15)
[2020-04-25 19:16] LABS: Troponin 5 6HR Delta -1.54 ng/L (0-12)
[2020-04-25] MEDS: zolpidem 5 mg Tablet PO (21:31)
[2020-04-26] VITALS (48 sets, daily range): BP systolic 112–187; BP diastolic 72–102; PULSE 46–79; RESP 7–31; TEMP 36.4–37.9; O2SAT 88–96
[2020-04-26] MEDS: sodium chloride 0.9% 1,000 ML 50 ML IV (04:34)
[2020-04-26] MEDS: fentaNYL 50 mcg/mL INJ 2mL 25 MCG IVP ×2 (05:17→16:00)
--- NOTE | 2020-04-26 06:56 | XACV_ITS ---
Exam Room: [facility] Ht: 185 cm Wt: 113 kg BSA: 2.45 m2 Gender: Male : 1955 Any Known Allergies: Hydrocodone Exam Priority: Routine Procedure(s): Procedure Description: Diagnostic procedure Procedure Description: Left Heart Catheterization Procedure Description: Right Heart Catheterization Procedure Description: Left ventriculography Procedure Description: Aortogram Procedure Description: O2 saturation Procedure Description: Coronary Angiography Diagnostic Cath Status: Urgent Diagnostic Findings * Left main artery: Arises from left coronary cusp. It has luminal irregularities. LAD: It arises from left main artery. It has diffuse luminal irregularities. No significant stenosis is noted. It gives rise to 2 diagonal branches. First diagonal branch has proximal to mid 20 to 30% stenosis. Left circumflex artery: It arises from left main artery. It has diffuse luminal irregularities without significant stenosis. 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 It seems to arise from the left coronary cusp were very close to the left main artery. It could not be selectively engaged despite switching several catheters. Nonselective injections demonstrated that the artery is patent. However CT scan will be needed to further evaluate the artery. It appears to arise anteriorly. . * Right heart findings: RA pressure: 15/13(12) RV pressure: 42/6(13) Wedge pressure: 22/22(21) PA pressure: 40/16(27) PA saturation: 57.3 Aortic saturation: 84 (patient sleeping and had apneic episodes) LVEDP 19 Cardiac output: 6.1 L/min Cardiac index 2.5. * Coronary angiography shows right dominance. Conclusions 1. No significant disease noted in the Left Main, LAD, Circumflex. 2. 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 Could not be selectively engaged. No significant stenosis noted on limited visualization. 3. Elevated right and left-sided pressures. Normal cardiac output and cardiac index. Recommendations * Will initiate furosemide as cardiac pressures are moderately elevated. * We will obtain CTA of coronary arteries to evaluate anomalous RCA takeoff and to rule out malignant course of RCA. * We will initiate antihypertensive medication. Diagnostic RX Recommendation: medical therapy and/or counseling Pressures Phase:Rest AO : 131 / 67 ( 90 ) @ 3:11:00 AM 104 / 67 ( 84 ) @ 3:18:00 AM 127 / 84 ( 103 ) @ 3:37:00 AM 152 / 81 ( 113 ) @ 3:50:00 AM 153 / 78 ( 112 ) @ 3:50:00 AM LV : 140 / -3 / @ 3:50:00 AM 141 / -4 / @ 3:50:00 AM RV : 42 / 6 / @ 3:01:00 AM PA : 40 / 16 ( 27 ) @ 3:03:00 AM RA : a wave = v wave = mean = 12 @ 3:00:00 AM O2 Content Phase:Rest PA : O2 Content O2: 57.3 @ 3:11:00 AM Saturations Phase:Rest AO : 84 @ 3:18:00 AM PA : 57 @ 3:11:00 AM Cardiac Output Phase:Rest Kirk : 6 @ 3:11:00 AM Kirk Cardiac Index: 2 @ 3:11:00 AM Valves Phase:DefaultPhase AV : 0.0 @ 10:24:14 AM 0.0 @ 10:24:14 AM AV Mean Gradient: 0.0 @ 10:24:14 AM 0.0 @ 10:24:14 AM Clinical Evaluation EBL: 5mL-10mL Procedural Details Procedure Consent Obtained. Pre-Procedure Time Out. Identified patient by full name and date of as verbalized by the patient/guarantor. Does the consent match the physician's order: Yes. Accurate & Complete Informed Consent: Yes. Inpatient/Outpatient History & Physical on Chart: Yes. If H&P is completed, is and addenduem needed: No; If yes, is the addendum complete: N/A. Visualize and Verify Site with Patient/Guarantor: N/A. Relevant Radiology Images available: N/A. Pre-op teaching completed and patient verbalized understanding. The risks, benefits, and alternatives of sedation and/or procedure were discussed by physician. The patient agrees to continue. Peri Ballard RT(R) was relieved by Talisha Meyers MAINFRAME SOFTWARE DEVELOPER as monitoring person. Procedure started. [facility] Clinical Fraility Score: 2: Well. [employer] Head Indications: Worsening Angina. Chest Pain Symptom Assessment: Typical Angina Symptoms. Cardiovascular Instability: No. Correct patient, site and procedure confirmed by cath team. PERRLA. Strong, equal hand almond blancher hand bilaterally. Lungs clear x 5 lobes. IV Site on Arrival: 18 gauge in the right anticubital. IV Site on Arrival: 18 gauge in the left forearm. IV Fluids: 0.9% NaCl at KVO. 0 mL infused prior to laborer gold leaf. Pre Procedural Pulses: bilateral radial was 3+. bilateral groins was prepped with chloroprep then draped in the usual sterile fashion. right brachial was prepped with chloroprep then draped in the usual sterile fashion. right radial was prepped with chloroprep then draped in the usual sterile fashion. Physician arrived. Physician scrubbed in. Immediate Pre-Procedure Time Out. Correct Patient: Yes; Correct Procedure: Yes; Correct Site: Yes; Correct Patient Position: Yes; Correct Supplies: Yes; Dried Flammable Prep: Yes; Blood Products Available: N/A;. Lidocaine 1% infiltrated to the right brachial. Wire inserted through IV catheter in right brachial vein. IV catheter removed. [place] MON catheter inserted. [place] out. Lidocaine 1% infiltrated to the right radial. Arterial access obtained. A 5 [place] TIG catheter in over wire. Oxygen started at 2liters/min via nasal canula. Multiple views taken of left coronary artery. Catheter out. A 5 [place] JR4 catheter in over wire. Catheter out. A 5 [place] 3DRC catheter in over wire. Catheter out. A 5 [place] AL1 catheter in over wire. Catheter out. A 5 [place] Angled Pig catheter in over wire. Aortogram performed in [place] @ 20 mL/second for a total of 40 mL. Catheter out. A 5 [place] 3DRC catheter in over wire. Catheter out. A 5 [place] AL1 catheter in over wire. Catheter out. A 5 [place] MPA2 catheter in over wire. EDP Sample taken: LV 140/-4,19; HR: 59 BPM; SpO2: 96%. Pullback taken: LV 141/-5,19; AO 152/81(113); Mean: 0mmHg, Peak to Peak: 0mmHg, SEP: 5sec/min; HR: 60 BPM; SpO2: 96%. Catheter out. Unable to seat catheters for RCA pictures using radial artery access. Physician moving to femoral approach. Lidocaine 1% infiltrated to the right groin. Arterial access obtained with micropuncture set. A 5 [place] JR4 catheter in over wire. Catheter out. A 5 [place] 3DRC catheter in over wire. Catheter out. Multiple views taken of right coronary artery. Long 6 fr 23 cm sheath exchanged for short 6 fr sheath. Physician scrubbed out. A Manual Compression was successful obtaining hemostatsis at the Right Brachial Vein insertion site. A TR Band was successful obtaining hemostatsis at the Right Radial artery insertion site. A Suture was successful obtaining hemostatsis at the Right Femoral artery insertion site. Sheath(s) sutured into position with 2-0 silk and sterile 4x4's and Op-site applied over the site. No oozing or signs and symptoms of hematoma noted. TR band placed. Hemostasis obtained. Arterial sheath flushed and connected to tranducer and pressure bag with heparinized saline. Post Procedure: Pulses reassessed and unchanged. PERRLA. Strong, equal hand almond blancher hand bilaterally. No VTE prophylaxis required. Medication's Wasted: Lidocaine 1% = 10 mL. Medication's Wasted: Heparin = 3000 units. Medication's Wasted: Nitro = 49.6 mg. Total IV fluids: 150 mL. Complications: none. Post-op diagnosis: non obstructive CAD. Estimated blood loss: 5mL-10mL. Procedure completed. Patient transferred by bed to 1st floor. Access Site Site: Right Brachial Vein Sheath Size: 6 Fr Hemostasis Method: Manual Compression Hemostasis Success: Successful Site: Right Radial artery Sheath Size: 6 Fr Hemostasis Method: TR Band Hemostasis Success: Successful Site: Right Femoral artery Sheath Size: 6 Fr Hemostasis Method: Suture Hemostasis Success: Successful Procedure Medications Start: 8:52 AM Stop: 8:52 AM Medication: Versed Amount: 1 mg Route: I.V. Start: 8:52 AM Stop: 8:52 AM Medication: Fentanyl Amount: 50 mcg Route: I.V. Start: 8:55 AM Stop: 8:55 AM Medication: Versed Amount: 1 mg Route: I.V. Start: 9:00 AM Stop: 9:00 AM Medication: Fentanyl Amount: 50 mcg Route: I.V. Start: 9:05 AM Stop: 9:05 AM Medication: Versed Amount: 1 mg Route: I.V. Start: 9:08 AM Stop: 9:08 AM Medication: Nitrogylcerin Amount: 200 mcg Route: I.A. Start: 9:16 AM Stop: 9:16 AM Medication: Nitrogylcerin Amount: 100 mcg Route: I.C. Start: 9:21 AM Stop: 9:21 AM Medication: Heparin Amount: 5000 units Route: I.V. Start: 9:26 AM Stop: 9:26 AM Medication: Versed Amount: 1 mg Route: I.V. Start: 9:49 AM Stop: 9:49 AM Medication: Heparin Amount: 1000 units Route: I.V. Start: 10:05 AM Stop: 10:05 AM Medication: Versed Amount: 1 mg Route: I.V. Start: 10:05 AM Stop: 10:05 AM Medication: Fentanyl Amount: 50 mcg Route: I.V. Start: 10:10 AM Stop: 10:10 AM Medication: Versed Amount: 1 mg Route: I.V. Start: 10:10 AM Stop: 10:10 AM Medication: Fentanyl Amount: 50 mcg Route: I.V. I, the attending physician, have reviewed and verified all procedure medications. Yes, all medications given per verbal order History/Risk Factors Hypertension: No Dyslipidemia: No Peripheral Arterial Disease (PAD): No Myocardial Infarction (AK): No Obesity: No Renal Disease: No Tobacco Use: Never Prior Interventions PCI: No CABG: No Valve Surgery: No Report Signatures Finalized by Dhruv Leach MD on 04/29/2020 06:07 PM
[2020-04-26] MEDS: diphenhydrAMINE 25 mg Capsule 50 MG PO (08:01)
--- NOTE | 2020-04-26 08:39 | PC.NURSE ---
pt to laborer cutting tool via wheelchair by JOLEEN Lilly.
--- NOTE | 2020-04-26 08:44 | W.PM.OPSUD ---
Surgery/Procedure H&P Update DATE OF PROCEDURE: April 26, 2020 DATE H&P PERFORMED: 04/25/20 H&P UPDATE INFORMATION: I have reviewed H&P completed within last 30 days, I have examined patient prior to procedure and No changes to prior documentation PREOP DIAGNOSIS: Unstable angina PRIMARY INDICATION FOR PROCEDURE: Unstable angina PLANNED PROCEDURE: Operation Date: 04/26/20 08:30 Proposed Procedures p Cardiac Catheterization(Left) +Right heart cath with possible Percutaneous coronary intervention- Dhruv Leach M.D PATIENT REASSESSED PRIOR TO SEDATION, WITH NO CHANGE NOTED: Yes PHYSICAL EXAM: alert, oriented x 3 and clear to auscultation bilaterally AIRWAY EVAL/ANESTHESIA PLAN: normal airway, ASA III, Risks, benefits & alternatives of sedation and/or procedure discussed and Patient agrees to continue as planned
--- NOTE | 2020-04-26 11:12 | PM.PN ---
Vitals/I&O/Wt Last Vital Signs Temp 97.6 F 04/26/20 10:43 Pulse 58 L 04/26/20 10:43 Resp 20 H 04/26/20 10:43 BP 131/78 04/26/20 10:43 Pulse Ox 91 04/26/20 10:43 Weight last 48 hrs Weight 250 lb Data : 04/25/20 12:52 04/25/20 12:38 Coding Level of Care Code Acute Exhibitions Curator for Austin Starr
[2020-04-26] MEDS: metoprolol tartrate 50 mg Tablet PO ×2 (11:52→17:36)
[2020-04-26] MEDS: aspirin 81 mg EC Tablet PO (11:52)
[2020-04-26] MEDS: predniSONE 20 mg Tablet 40 MG PO (11:52)
[2020-04-26 12:02] LABS: Basophils # 0.1 10^3/uL (0.0-0.1); Basophils % 0.6 %; Eosinophils % 0.1 %; Hematocrit 41.9 % (42.0-52.0); Hemoglobin 13.7 g/dL (11.7-16.6); Lymphocytes # 1.9 10^3/uL (0.8-4.8); Lymphocytes % 18.4 %; Mean Corpuscular HGB Conc 32.7 g/dL (30.0-36.0); Mean Corpuscular Hemoglobin 28.8 pg (28.0-34.0); Mean Platelet Volume 9.2 fL (7.4-10.4); Monocytes % 9.3 %; Neutrophils # 7.27 10^3/uL (1.8-7.7); Nucleated Red Blood Cells % 0 %; Platelet Count 334 10^3/cmm (130-400); Red Blood Count 4.76 10^6/uL (4.1-5.3); Red Cell Distribution Width 13.6 % (12.1-15.1); White Blood Count 10.2 10^3/uL (4.0-10.0)
[2020-04-26 12:22] LABS: Partial Thromboplastin Time 58.4 SECONDS (23.9-36.7)
[2020-04-26 12:26] LABS: Anion Gap 13.4 (5-19); Blood Urea Nitrogen 17 mg/dL (8-23); Calcium 9.2 mg/dL (8.5-10.5); Carbon Dioxide 27 mmol/L (22-29); Chloride 97 mmol/L (98-107); Glomerular Filtration Rate 67.4 mL/min (90-130); Glucose 116 mg/dL (65-115); Osmolality Calculated 279 mOsm/kg (285-295); Potassium 4.4 mmol/L (3.5-5.1); Sodium 133 mmol/L (136-145)
--- NOTE | 2020-04-26 13:13 | XRR_ITS ---
PROCEDURE INFORMATION: Exam: XR Chest, 1 View Exam date and time: 04/26/2020 2:02 PM Age: 64 years old Clinical indication: Shortness of breath; Prior surgery; Surgery type: Stents TECHNIQUE: Imaging protocol: XR of the chest Views: 1 view. COMPARISON: CR XR chest 1V portable [id number] 04/25/2020 12:54 PM FINDINGS: Lungs: Stable linear atelectasis or scarring in both lung bases. The lungs are otherwise clear. Pleural space: Unremarkable. No pleural effusion. No pneumothorax. Heart/Mediastinum: Unremarkable. No cardiomegaly. Bones/joints: Unremarkable. XR/XR chest 1V portable [id number] IMPRESSION: No acute findings.
--- NOTE | 2020-04-26 13:37 | PC.CHAP ---
Pastoral Care Encounter/Spiritual Assessment Type of Contact [] Declined adjunct writing instructor visit [] Patient/Family/Request visit [] Outpatient visit [] Follow-up visit [] Physician referral [] Code/Alert [x] Routine visit [] Staff referral [] Actively dying [] Patient sleeping [] Family support [] [] Out of room [] Palliative care [] [] Receiving care in room [] Pre-surgical visit [] Trauma [] Long length of stay [] ICU visit [] Other: Relational/Emotional Strength [] Patient feels connected with others/family/visitors/staff [] Distress [] Loneliness/isolation [] Abandonment Spirituality of Patient [] Person of Colleen [] Attends Protestant of their Colleen [] Believes in Prayer [] Reads Bible or Anglican materials [] There are Spiritual issues to be addressed Compressor Service Technician Interventions [] Prayer [] Active listening [] Non-anxious presence [] Spiritual/emotional support [] Crisis/trauma care [] Spiritual counseling [] Bereavement support [] Provided bereavement packet [] Provided Bible/devotional materials [] Provided toy/stuffed animal, coloring book to patient or family member [] Provided Communion [] Anointing/[place] [] Salvation [] Completed spiritual assessment [] Other: Impact on Illness or Injury [] Angry [] Fearful [] Anxious [] Often cries [] Exhaustion [] Unable to work [] Unable to attend yazidism [] Unable to walk/stand [] Unable to read [] Unable to drive [] Unable to eat/drink [] Unable to sleep [] Unable to be with family [] Patient intubated [] Other: Summary Time spent with patient
[2020-04-26 14:28] LABS: NT Pro B Type Natriuretic Pept 653 pg/mL (0-125)
--- NOTE | 2020-04-26 15:08 | PC.NURSE ---
pt noncompliant, pt got up to bathroom with sheath in groin even though he was educated to keep leg straight and lay flat. Pt has been educated multiple times but continues to move leg and try to get out of bed. Pt pulled off his own TR band even after being instructed on how nurse was to remove air from band every so often.
[2020-04-26 15:13] LABS: Partial Thromboplastin Time 28.6 SECONDS (23.9-36.7)
--- NOTE | 2020-04-26 16:44 | PC.NURSE ---
pulled sheath at 1605 and held pressure until 1625. Pt tolerated well. at bedside. Pt and educated about bedrest and states she will keep an eye on him.
--- NOTE | 2020-04-26 17:24 | P.DS_ITS ---
Discharge Providers Date of Admission: 04/25/20 12:35 Date of Discharge: April 26, 2020 Attending Provider at Admission: Dhruv Leach M.D Attending Provider at Discharge: Dhruv Leach M.D Primary Care Provider: Barrett Gamboa DO Diagnoses at Discharge Discharge Diagnosis (1) Unstable angina: Status: Ruled-out (2) Chest pain: Status: Resolved (3) Arthralgia of back: Status: Acute (4) Shoulder pain with history of repair of rotator cuff: Status: Acute (5) Degenerative joint disease (DJD) of lumbar spine: Status: Acute (6) Hypertension: Status: Acute Reason for Visit Reason for Visit: Chest pain Hospital Course Hospital Course 64-year-old man with no significant past medical history (other than possible autoimmune process that was treated with steroids in the past)was admitted from office secondary to complaints concerning for unstable angina. Patient was seen on 04/14/2020 for evaluation of chest pain. He is overall an active person and plan was to obtain nuclear stress test. However patient presented to the emergency room on 04/22/2020 with chest pain. ACS was ruled out and he was discharged to follow-up with cardiology office. I saw the patient on 04/25/2020 and he described very typical substernal chest pain on exertion and was visibly short of breath. We admitted patient for unstable angina and coronary angiography. EKG demonstrated T wave inversions in anterolateral and inferior leads which were present on prior EKGs. 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 RCA was nonselectively imaged because of anomalous origin. Patient will need coronary CT scan to rule out malignant course of RCA. He was chest pain-free after angiogram. Patient did have elevated CRP and had a low-grade fever episode while in the hospital. I wanted to consult hospitalist service for further work-up. However patient did not want to stay in the hospital and wanted to complete work-up as outpatient. As patient was stable hemodynamically and was asymptomatic we decided to discharge him with follow-up with rheumatology and PCP. I will also see patient in the office and order CT angiogram of coronaries to rule out malignant course of RCA and have complete evaluation. Patient has been on prednisone primary care physician, we continue prednisone for now.Of note patient's blood pressure has stayed high in the hospital. He is discharged on amlodipine 5 mg twice daily. This could be related to his prednisone use. I have advised him to keep a log of his blood pressure readings over the next 2 weeks. Patient's NT ProBNP was elevated initially that has improved to around 600 by discharge. Will give 5 days of lasix to be initiated on Tuesday once outpatient BMP confirms normal renal function Physical Exam Narrative: EXAM NARRATIVE: GENERAL: Patient is alert, awake and oriented x3. [] NECK: No jugular vein distension. [] HEENT: No cyanosis. No icterus. No pallor. [] HEART: Regular S1 and S2. No murmur, rub or gallop. [] LUNGS: Clear to auscultate bilaterally. [] ABDOMEN: Soft, nontender and nondistended. Positive bowel sounds. No guarding, rebound or tenderness. [] CENTRAL NERVOUS SYSTEM: Grossly nonfocal. [] EXTREMITIES: Lower extremities with no edema bilaterally. Pulses palpable in the lower extremities, both dorsalis pedis and posterior tibial. [] Discharge Data Data Completed and Pending: Completed Studies During Hospitalization Category Date Time Status XR chest 1V juan jose ble [id number] Routine Exams 04/26/20 13:13 Taken XR chest 1V juan jose ble [id number] Stat Exams 04/25/20 12:18 Completed CV echo complete* [id number] Routine Ultrasound 04/25/20 14:06 Completed Pending at discharge Category Date Time Status FLIGHT SERVICE SPECIALIST request for service Routin e Exams 04/26/20 06:56 Ordered Labs from last 24 hours 04/26/20 04/26/20 04/26/20 14:33 11:50 11:50 WBC RBC Hgb Hct MCV MCH MCHC RDW Plt Count MPV Neut % (Auto) Lymph % (Auto) [place] % (Auto) Eos % (Auto) Baso % (Auto) Neut # (Auto) Lymph # (Auto) [place] # (Auto) Eos # (Auto) Baso # (Auto) Nucleated RBC % (a uto) Nucleated RBCs # APTT 28.6 D 58.4 H Sodium Potassium Chloride Carbon Dioxide Anion Gap BUN Creatinine GFR Calculation Glucose Calculated Osmolal ity Calcium Troponin T Hi Sens 6Hr Troponin T Hi Sens 6Hr Delta NT-Pro-B Natriuret Pep 653 H 04/26/20 04/26/20 04/25/20 11:50 11:50 18:37 WBC 10.2 H RBC 4.76 Hgb 13.7 Hct 41.9 L MCV 88.0 MCH 28.8 MCHC 32.7 RDW 13.6 Plt Count 334 MPV 9.2 Neut % (Auto) 71.0 Lymph % (Auto) 18.4 [place] % (Auto) 9.3 Eos % (Auto) 0.1 Baso % (Auto) 0.6 Neut # (Auto) 7.27 Lymph # (Auto) 1.9 [place] # (Auto) 1.0 H Eos # (Auto) 0.0 Baso # (Auto) 0.1 Nucleated RBC % (a uto) 0 Nucleated RBCs # 0.0 APTT Sodium 133 L Potassium 4.4 Chloride 97 L Carbon Dioxide 27 Anion Gap 13.4 BUN 17 Creatinine 1.1 GFR Calculation 67.4 L Glucose 116 H Calculated Osmolal ity 279 L Calcium 9.2 Troponin T Hi Sens 6Hr 8.46 Troponin T Hi Sens 6Hr Delta -1.54 L NT-Pro-B Natriuret Pep Vitals: Last Vital Signs Temp 97.6 F 04/26/20 10:43 Pulse 62 04/26/20 15:52 Resp 19 H 04/26/20 16:00 BP 147/79 04/26/20 15:15 Pulse Ox 94 04/26/20 16:00 Discharge Plan Discharge Patient Disposition: Home Condition: Stable Prescriptions: New aspirin 81 mg Tablet,Delayed Release (Dr/Ec) 81 mg PO DAILY Qty: 90 RF: 1 amlodipine 5 mg tablet 5 mg PO BID Qty: 60 RF: 1 Lasix 20 mg tablet 20 mg PO BID 5 Days Qty: 10 RF: 0 Continued cod liver oil Oil 15 ml PO DAILY RF: 0 ascorbic acid (vitamin C) [Vitamin C] 1,000 mg Tablet 1,000 mg PO DAILY RF: 0 nitroglycerin 0.4 mg tablet, sublingual 0.4 mg sublingual Q5M PRN (Reason: CHEST PAINS) RF: 0 loratadine [Claritin] 10 mg Tablet 5 mg PO BID RF: 0 prednisone 20 mg tablet 20 mg PO . DIRECTED RF: 0 Held sildenafil 100 mg tablet See Rx Instructions .Route .COMPLEX Qty: 20 RF: 6 Hold Instructions: Resume on 05/03/20. Please do not take with nitro ibuprofen 200 mg Tablet 200 mg PO Q6H PRN (Reason: Pain) RF: 0 Hold Instructions: Resume on 04/29/20. Discharge Orders: Discharge Order (Routine); Ordered 04/26/20 Ordered By: Dhruv Leach Other Ambulatory Orders: Basic Metabolic Panel (Routine) Timeframe: 20200429 Facility: [facility] - Location: Lab - Main Lab Ordered By: Dhruv Leach Complete Blood Count w/Auto (Routine) Timeframe: 20200429 Location: Determined by Patient Ordered By: Dhruv Leach Referrals: Dhruv Leach M.D [Physician] - 05/06/20 (Please keep the appointment you have with Dr. Leach on May 06. ) Gabriele Connelly MD [Physician] - 1 week (Dr. Connelly's off will be calling to schedule an appointment to be seen in 1 week. If you don't hear from them by Tuesday, please give them a call. Thank you) Cielo Mccabe FNP [Nurse Practitioner] - 7-10 days ([facility] will call you to schedule a post procedure followup with TIAGO Tracy to be seen in approx. 7 to 10 days. If you haven't heard from them by Tuesday late morning, please give them a call. Thank you) Barrett Gamboa DO [Primary Care Provider] - 1-3 days ([facility] Will be calling to schedule a hospital followup with Dr. Gamboa to be seen in 1 to 3 days. Please give them a call if you don't hear from them by Tuesday afternoon. Thank you) Discharge Diet: Low Salt Discharge Activity: Increase activity as tolerated Patient Instructions: Aspirin (By mouth), Amlodipine (By mouth), Left Heart Catheterization (DC), Right Heart Catheterization (DC) Activity Restrictions/Additional Instructions: Have more than 1.5 liters of fluid for the next 2 days Labs on Tuesday as ordered Please do not lift more than 5 pounds of weight for the next 5 days Check daily blood pressure and temparature at home Discharge Attestations Time Spent in Discharge Care*: greater than 30 min Quality Metrics Clinical Quality Measures During this hospital stay, did patient experience: None Coding Level of Care Code Acute Inshore Undersea Warfare Officer for Austin Fwharshil Diagnoses Unstable angina I20.0 Chest pain R07.9 Arthralgia of back M54.9 Shoulder pain with history of repair of rotator cuff M25.519; Z98.890 Degenerative joint disease (DJD) of lumbar spine M47.816 Hypertension I10
--- NOTE | 2020-04-26 22:46 | PC.NURSE ---
pt dc'ed home, discharge intstructions given, IV removed intact, pt ambulatory out accompanied by nursing staff
== END 2020-04-26 20:30 | disposition home or self-care (01) ==
LOC: ER 15:12 → CSU 15:46
PROVIDERS: Admitting Provider Internal Medicine; Emergency Provider Emergency Medicine; PCP Family Medicine; Visit Provider Internal Medicine
DX: I20.0 Unstable angina (principal); R07.9 Chest pain, unspecified; I10 Essential (primary) hypertension; M54.9 Dorsalgia, unspecified; M47.816 Spondylosis without myelopathy or radiculopathy, lumbar region
CPT/HCPCS: 12345; 36415; 71045; 80048; 80053; 83690; 83880; 84484; 85025; 85610; 85730; 93005; 93306; 93461; 96375; 99283; 99285; C1751; C1769; C1887; C1894; G0378; J1644; J2250; J3010; J3490; J7030; J7512; Q9967

== ENCOUNTER 2020-05-06 13:46 | Outpatient (CLI) | payer BC, SELFPAY | END 2020-05-06 13:47 | disposition home or self-care (01) | LOC: LAB 02-27 12:43 | PROVIDERS: PCP Family Medicine; Visit Provider Nurse Practitioner Family | DX: R07.9 Chest pain, unspecified (principal) | CPT/HCPCS: 80048 ==

== ENCOUNTER → 2021-10-13 14:26 | Outpatient (BNVA) | payer MEDICARE, SELFPAY | PROVIDERS: PCP Family Medicine; Visit Provider Family Medicine | DX: Z51.81 Encounter for therapeutic drug level monitoring (principal) | CPT/HCPCS: 80053; 81000; 85025 ==

== ENCOUNTER → 2022-01-27 09:37 | Outpatient (BNVA) | payer MEDICARE, SELFPAY | PROVIDERS: PCP Family Medicine; Visit Provider Family Medicine | DX: I10 Essential (primary) hypertension; Q24.5 Malformation of coronary vessels; Z20.828 Contact with and (suspected) exposure to other viral communicable diseases; M47.816 Spondylosis without myelopathy or radiculopathy, lumbar region; Z79.899 Other long term (current) drug therapy; D72.819 Decreased white blood cell count, unspecified | CPT/HCPCS: 80053; 82652; 85025 ==

== ENCOUNTER 2022-03-12 14:38 | Outpatient (CLI) | payer MEDICARE, SELFPAY ==
--- NOTE | 2022-03-12 14:50 | MR_ITS ---
WS: [id number] MRI RIGHT SHOULDER HISTORY: R SHOULDER PAIN, Prior RIGHT shoulder rotator cuff repair. COMPARISON: None available. TECHNIQUE: Multiplanar sequences of the shoulder joint are submitted. Severe AC joint arthritis. Osteophytes from the distal clavicle and acromion. There is fluid along th e AC ligament. Osteophytes from the AC joint encroach and deform the supraspinatus muscle and tendon. Biceps tendon does remain in the bicipital groove. Increased fluid within the tendon sheath. Moderate glenohumeral joint arthritis. Hypertrophic osteophytes with loss of cartilage along the chrissy ral head and glenoid. Small articular surface tear of the supraspinatus tendon. Additional tear invol ving the insertion site with fluid extending along the tendon. No muscle atrophy or fatty replacement . Degenerative changes involve the labrum. Suspect there is probably a superior labral tear which ext ends anterior. MR/MR shoulder RT wo con* [id number] IMPRESSION: 1. Severe AC joint arthritis with encroachment upon the supraspinatus tendon a nd muscle. 2. Very small articular surface tear distal supraspinatus tendon. Additional i nsertion site tear of the supraspinatus with intrasubstance fluid. 3. Mild biceps tenosynovitis. 4. Superior anterior labral tear. 5. Prior rotator cuff repair surgery. 6. Moderate osteoarthritic changes at the glenohumeral joint.
[2022-03-12 16:33] LABS: Basophils % 0.6 %; Eosinophils # 0.1 10^3/uL (0.0-0.8); Eosinophils % 1.8 %; Hematocrit 42.5 % (42.0-52.0); Hemoglobin 14.5 g/dL (11.7-16.6); Lymphocytes # 1.3 10^3/uL (0.8-4.8); Lymphocytes % 26.7 %; Mean Corpuscular HGB Conc 34.1 g/dL (30.0-36.0); Mean Corpuscular Hemoglobin 30.4 pg (28.0-34.0); Mean Corpuscular Volume 89.1 fl (80-94); Mean Platelet Volume 9.5 fL (7.4-10.4); Monocytes # 0.3 10^3/uL (0.2-0.9); Monocytes % 5.3 %; Neutrophils # 3.23 10^3/uL (1.8-7.7); Neutrophils % 65.4 %; Nucleated Red Blood Cells % 0 %; Platelet Count 254 10^3/cmm (130-400); Red Blood Count 4.77 10^6/uL (4.1-5.3); Red Cell Distribution Width 13.2 % (12.1-15.1); White Blood Count 4.9 10^3/uL (4.0-10.0)
[2022-03-12 16:36] LABS: Erythrocyte Sedimentation Rate 10 mm/hr (0-10)
[2022-03-15 13:23] LABS: Cyclic Citrullinated Peptide <16 UNITS
[2022-03-15 14:52] LABS: Anti-Nuclear Antibody Screen NEGATIVE (NEGATIVE)
== END 2022-03-12 14:39 | disposition home or self-care (01) ==
PROVIDERS: PCP Family Medicine; Visit Provider Emergency Medicine
DX: M13.811 Other specified arthritis, right shoulder (principal); M75.21 Bicipital tendinitis, right shoulder; S43.431A Superior glenoid labrum lesion of right shoulder, initial encounter; X58.XXXA Exposure to other specified factors, initial encounter; M19.011 Primary osteoarthritis, right shoulder
CPT/HCPCS: 36415; 73221; 85025; 85651; 86038; 86140; 86200; 86431

== ENCOUNTER 2022-06-29 10:40 | Outpatient (CLI) | payer MEDICARE, SELFPAY ==
[2022-06-29 11:41] LABS: Add Urine Microscopic? NO; Charge for UA Resulting for Rev
[2022-06-29 11:46] LABS: Basophils % 0.7 %; Eosinophils # 0.1 10^3/uL (0.0-0.8); Eosinophils % 1.2 %; Hematocrit 46.1 % (42.0-52.0); Hemoglobin 14.8 g/dL (11.7-16.6); Lymphocytes # 1.4 10^3/uL (0.8-4.8); Mean Corpuscular HGB Conc 32.1 g/dL (30.0-36.0); Mean Corpuscular Hemoglobin 28.8 pg (28.0-34.0); Mean Corpuscular Volume 89.9 fl (80-94); Monocytes # 0.3 10^3/uL (0.2-0.9); Monocytes % 7.1 %; Neutrophils % 56.8 %; Nucleated Red Blood Cells % 0 %; Platelet Count 280 10^3/cmm (130-400); Red Blood Count 5.13 10^6/uL (4.1-5.3); Red Cell Distribution Width 13.9 % (12.1-15.1); White Blood Count 4.2 10^3/uL (4.0-10.0)
[2022-06-29 11:55] LABS: Bilirubin Urine Neg (Negative); Blood Urine Neg (Negative); Glucose Urine UA Norm (Normal); Ketones Urine Negative (Negative); Leukocyte Esterase Urine Negative (Negative); Nitrate Urine Negative (Negative); Protein Urine Neg (Negative); Urine Appearance Clear (CLEAR); Urine Color Light yellow (Yellow); Urobilinogen Urine Neg (Negative); pH Urine 7 (5-7)
[2022-06-29 12:10] LABS: Alanine Aminotransferase 29 U/L (0-41); Albumin Level 4.4 g/dL (3.5-5.2); Alkaline Phosphatase 51 U/L (40-130); Anion Gap 12.4 (5-19); Aspartate Amino Transferase 30 U/L (0-40); Blood Urea Nitrogen 22 mg/dL (8-23); Calcium 10.3 mg/dL (8.5-10.5); Carbon Dioxide 32 mmol/L (22-29); Chloride 100 mmol/L (98-107); Globulin 3.9 g/dL (1.3-4.6); Glomerular Filtration Rate 74.8 mL/min (90-130); Glucose 99 mg/dL (65-115); Osmolality Calculated 293 mOsm/kg (285-295); Potassium 4.4 mmol/L (3.5-5.1); Sodium 140 mmol/L (136-145); Total Bilirubin 0.7 mg/dL (0.15-1.2); Total Protein 8.3 g/dL (6.6-8.7)
== END 2022-06-29 10:41 | disposition home or self-care (01) ==
LOC: LAB 10:50
PROVIDERS: PCP Family Medicine; Visit Provider Family Medicine
DX: Z79.899 Other long term (current) drug therapy (principal)
CPT/HCPCS: 36415; 80053; 81003; 85025

== ENCOUNTER 2022-09-29 09:11 | Outpatient (CLI) | payer MEDICARE, SELFPAY ==
[2022-09-29 09:49] LABS: Add Urine Microscopic? NO; Charge for UA Resulting for Rev
[2022-09-29 09:58] LABS: Basophils % 0.9 %; Eosinophils # 0.1 10^3/uL (0.0-0.8); Eosinophils % 2.6 %; Hemoglobin 14.5 g/dL (11.7-16.6); Lymphocytes # 1.4 10^3/uL (0.8-4.8); Lymphocytes % 31.2 %; Mean Corpuscular Hemoglobin 29.5 pg (28.0-34.0); Mean Corpuscular Volume 89.4 fl (80-94); Mean Platelet Volume 8.9 fL (7.4-10.4); Monocytes # 0.3 10^3/uL (0.2-0.9); Monocytes % 7.4 %; Neutrophils # 2.66 10^3/uL (1.8-7.7); Neutrophils % 57.7 %; Nucleated Red Blood Cells % 0 %; Platelet Count 261 10^3/cmm (130-400); Red Blood Count 4.92 10^6/uL (4.1-5.3); Red Cell Distribution Width 13.8 % (12.1-15.1); White Blood Count 4.6 10^3/uL (4.0-10.0)
[2022-09-29 10:08] LABS: Bilirubin Urine Neg (Negative); Blood Urine Neg (Negative); Glucose Urine UA Norm (Normal); Ketones Urine Negative (Negative); Leukocyte Esterase Urine Negative (Negative); Nitrate Urine Negative (Negative); Protein Urine Neg (Negative); Urine Appearance Clear (CLEAR); Urine Color Yellow (Yellow); Urobilinogen Urine Neg (Negative); pH Urine 7 (5-7)
[2022-09-29 10:15] LABS: Alanine Aminotransferase 35 U/L (0-41); Albumin Level 4.2 g/dL (3.5-5.2); Alkaline Phosphatase 42 U/L (40-130); Anion Gap 12.4 (5-19); Aspartate Amino Transferase 36 U/L (0-40); Blood Urea Nitrogen 19 mg/dL (8-23); Calcium 9.4 mg/dL (8.5-10.5); Carbon Dioxide 27 mmol/L (22-29); Chloride 104 mmol/L (98-107); Globulin 3.5 g/dL (1.3-4.6); Glomerular Filtration Rate 84.4 mL/min (90-130); Glucose 96 mg/dL (65-115); Osmolality Calculated 290 mOsm/kg (285-295); Potassium 4.4 mmol/L (3.5-5.1); Sodium 139 mmol/L (136-145); Total Bilirubin 0.6 mg/dL (0.15-1.2); Total Protein 7.7 g/dL (6.6-8.7)
== END 2022-09-29 09:12 | disposition home or self-care (01) ==
LOC: LAB 09:17
PROVIDERS: PCP Family Medicine; Visit Provider Internal Medicine Rheumatology
DX: Z01.89 Encounter for other specified special examinations (principal)
CPT/HCPCS: 36415; 80053; 81003; 85025

== ENCOUNTER → 2023-01-18 07:27 | Outpatient (BNVA) | payer MEDICARE, SELFPAY | PROVIDERS: Visit Provider Student in an Organized Health Care Education/Training Program | DX: M25.512 Pain in left shoulder; M25.511 Pain in right shoulder; M19.011 Primary osteoarthritis, right shoulder; M75.101 Unspecified rotator cuff tear or rupture of right shoulder, not specified as traumatic | CPT/HCPCS: 73030; 99204 ==

== ENCOUNTER → 2023-02-25 07:33 | Outpatient (BNVA) | payer MEDICARE, SELFPAY | PROVIDERS: Visit Provider Student in an Organized Health Care Education/Training Program | DX: M19.011 Primary osteoarthritis, right shoulder | CPT/HCPCS: 20610; 77002; 99213; J3301 ==

== ENCOUNTER → 2023-04-11 10:41 | Outpatient (BNVA) | payer MEDICARE, SELFPAY | PROVIDERS: Visit Provider Family Medicine | DX: Z12.5 Encounter for screening for malignant neoplasm of prostate (principal); Z80.42 Family history of malignant neoplasm of prostate; R63.4 Abnormal weight loss; N52.9 Male erectile dysfunction, unspecified | CPT/HCPCS: 80053; 85025; G0103 ==

== ENCOUNTER → 2023-06-16 08:14 | Outpatient (BNVA) | payer MEDICARE, SELFPAY | PROVIDERS: PCP Family Medicine; Visit Provider Physician Assistant | DX: M19.011 Primary osteoarthritis, right shoulder (principal); M75.101 Unspecified rotator cuff tear or rupture of right shoulder, not specified as traumatic | CPT/HCPCS: 99213 ==

== ENCOUNTER → 2023-09-16 07:51 | Outpatient (BNVA) | payer MEDICARE, SELFPAY | PROVIDERS: PCP Family Medicine; Visit Provider Student in an Organized Health Care Education/Training Program | DX: M19.011 Primary osteoarthritis, right shoulder | CPT/HCPCS: 20610; 77002; 99213; J3301 ==

== ENCOUNTER → 2024-01-13 08:04 | Outpatient (BNVA) | payer MEDICARE, SELFPAY | PROVIDERS: PCP Family Medicine; Visit Provider Student in an Organized Health Care Education/Training Program | DX: M19.011 Primary osteoarthritis, right shoulder (principal) | CPT/HCPCS: 20610; 77002; 99213; J3301 ==

== ENCOUNTER → 2024-03-22 08:49 | Outpatient (BNVA) | payer MEDICARE, SELFPAY | PROVIDERS: PCP Family Medicine; Visit Provider Student in an Organized Health Care Education/Training Program | DX: M25.552 Pain in left hip (principal); M70.62 Trochanteric bursitis, left hip | CPT/HCPCS: 73502; 99213 ==

== ENCOUNTER 2024-04-18 10:40 | Outpatient (CLI) | payer MEDICARE, SELFPAY ==
[2024-04-18 11:27] LABS: Basophils % 0.7 %; Hematocrit 43.7 % (37-53); Lymphocytes # 1.8 10^3/uL (0.8-4.8); Lymphocytes % 44.4 %; Mean Corpuscular Hemoglobin 29.3 pg (27-33); Mean Platelet Volume 9.3 fL (7.4-10.4); Monocytes # 0.3 10^3/uL (0.2-0.9); Monocytes % 6.9 %; Neutrophils # 1.89 10^3/uL (1.8-7.7); Neutrophils % 46.8 %; Nucleated Red Blood Cells % 0 %; Platelet Count 257 10^3/cmm (157-399); Red Blood Count 4.91 10^6/uL (3.85-5.65); Red Cell Distribution Width 13.8 % (12.1-15.1); White Blood Count 4.05 10^3/uL (3.29-11.43)
[2024-04-18 11:29] LABS: Erythrocyte Sedimentation Rate 12 mm/hr (0-10)
[2024-04-18 12:03] LABS: Alanine Aminotransferase 31 U/L (0-41); Albumin Level 4.2 g/dL (3.5-5.2); Alkaline Phosphatase 45 U/L (40-130); Anion Gap 10.2 (5-19); Aspartate Amino Transferase 31 U/L (0-40); Blood Urea Nitrogen 19 mg/dL (8-23); Calcium 8.8 mg/dL (8.5-10.5); Carbon Dioxide 30 mmol/L (22-29); Chloride 102 mmol/L (98-107); Cholesterol 203 mg/dL (0-200); Free T4 Free Thyroxine 1.03 ng/dL (0.82-1.77); Globulin 3.3 g/dL (1.3-4.6); Glomerular Filtration Rate 74.3 mL/min (90-130); Glucose 100 mg/dL (65-115); HDL Cholesterol 52 mg/dL (60-100); LDL Cholesterol Calculated 132 mg/dL (50-129); LDL HDL Ratio 2.54 RATIO (0.00-3.22); Osmolality Calculated 288 mOsm/kg (285-295); Potassium 4.2 mmol/L (3.5-5.1); Prostate Specific Antigen 0.627 ng/mL (0-4); Sodium 138 mmol/L (136-145); Thyroid Stimulating Hormone 2.21 uIU/mL (0.27-4.20); Total Bilirubin 0.7 mg/dL (0.15-1.2); Total Protein 7.5 g/dL (6.6-8.7); Triglycerides 94 mg/dL (0-150)
[2024-04-19 15:04] LABS: Cyclic Citrullinated Peptide <16 UNITS
== END 2024-04-18 10:41 | disposition home or self-care (01) ==
LOC: LAB 10:41
PROVIDERS: PCP Family Medicine; Visit Provider Family Medicine
DX: N40.0 Benign prostatic hyperplasia without lower urinary tract symptoms (principal); Z80.42 Family history of malignant neoplasm of prostate; I10 Essential (primary) hypertension
CPT/HCPCS: 36415; 80053; 80061; 84153; 84439; 84443; 85025; 85651; 86140; 86200; 86431

== ENCOUNTER → 2024-04-20 08:55 | Outpatient (BNVA) | payer MEDICARE, SELFPAY | PROVIDERS: PCP Family Medicine; Visit Provider Student in an Organized Health Care Education/Training Program | DX: M19.011 Primary osteoarthritis, right shoulder (principal); Z71.89 Other specified counseling | CPT/HCPCS: 20610; 77002; J3301 ==

== ENCOUNTER 2024-07-15 07:40 | Emergency (ER) | payer MEDICARE, SELFPAY ==
[2024-07-15 07:54] VITALS: BP 158/95; PULSE 58; RESP 16; TEMP 36.4; O2SAT 95; BMI 27.7
--- NOTE | 2024-07-15 09:02 | CTR_ITS ---
PROCEDURE INFORMATION: Exam: CT Head Without Contrast Exam date and time: 07/15/2024 9:20 AM Age: 68 years old Clinical indication: Injury or trauma; Fall; Blunt trauma (contusions or hematomas); Without loss of consciousness; Additional info: Fall 1 week ago, head pain TECHNIQUE: Imaging protocol: Computed tomography of the head without contrast. Radiation optimization: All CT scans at this facility use at least one of these dose optimization techniques: automated exposure control; mA and/or kV adjustment per patient size (includes targeted exams where dose is matched to clinical indication); or iterative reconstruction. COMPARISON: CT cervical spin wo con* [id number] 07/15/2024 9:20 AM RADIATION DOSE METRICS: Total DLP (mGy-cm): 1078.85 FINDINGS: Brain: Normal. No hemorrhage. Unremarkable white matter. No mass effect. Cerebral ventricles: No ventriculomegaly. Paranasal sinuses: Visualized sinuses are unremarkable. No fluid levels. Mastoid air cells: Visualized mastoid air cells are well aerated. Bones: Unremarkable. No acute fracture. Soft tissues: Unremarkable. CT/CT head wo con* [id number] IMPRESSION: No acute intracranial abnormality.
--- NOTE | 2024-07-15 09:02 | CTR_ITS ---
PROCEDURE INFORMATION: Exam: CT Cervical Spine Without Contrast Exam date and time: 07/15/2024 9:20 AM Age: 68 years old Clinical indication: Injury or trauma; Fall; Blunt trauma; Additional info: Fall, neck pain TECHNIQUE: Imaging protocol: Computed tomography of the cervical spine without contrast. Radiation optimization: All CT scans at this facility use at least one of these dose optimization techniques: automated exposure control; mA and/or kV adjustment per patient size (includes targeted exams where dose is matched to clinical indication); or iterative reconstruction. COMPARISON: CR XR cervical spine 3V* [id number] 06/14/2019 10:34 AM RADIATION DOSE METRICS: Total DLP (mGy-cm): 283.7 FINDINGS: Bones: No acute fracture. Normal alignment. No significant disc bulge or herniation. No severe spinal canal stenosis. No significant neural foraminal narrowing. Lungs: Lung apices are normal. Soft tissues: Unremarkable. CT/CT cervical spin wo con* [id number] IMPRESSION: No acute findings.
[2024-07-15 09:18] LABS: Eosinophils # 0.1 10^3/uL (0.0-0.8); Eosinophils % 2.6 %; Hematocrit 45.1 % (37-53); Lymphocytes # 1.7 10^3/uL (0.8-4.8); Lymphocytes % 43.8 %; Mean Corpuscular HGB Conc 32.2 g/dL (30-55); Mean Corpuscular Hemoglobin 29.1 pg (27-33); Mean Corpuscular Volume 90.4 fl (82-101); Mean Platelet Volume 9.2 fL (7.4-10.4); Monocytes # 0.2 10^3/uL (0.2-0.9); Monocytes % 5.4 %; Neutrophils # 1.82 10^3/uL (1.8-7.7); Neutrophils % 47.2 %; Nucleated Red Blood Cells % 0 %; Platelet Count 229 10^3/cmm (157-399); Red Blood Count 4.99 10^6/uL (3.85-5.65); Red Cell Distribution Width 14.2 % (12.1-15.1); White Blood Count 3.86 10^3/uL (3.29-11.43)
[2024-07-15 09:21] VITALS: BP 166/98; PULSE 55; O2SAT 95
[2024-07-15 09:25] LABS: Bilirubin Urine Negative (Negative); Blood Urine Negative (Negative); Glucose Urine UA Negative (Normal); Ketones Urine Negative (Negative); Leukocyte Esterase Urine Negative (Negative); Nitrate Urine Negative (Negative); Protein Urine Negative (Negative); Specific Gravity, Urine 1.009 (1.005-1.030); Urine Appearance Clear (CLEAR); Urine Color Yellow (Yellow); Urobilinogen Urine 0.2 mg/dL (Negative); pH Urine 7.5 (5-7)
[2024-07-15 09:31] LABS: Add Urine Microscopic? YES; Bacteria Urine None Seen /hpf; Hyaline Casts Urine 0-4 /lpf; RBC Urine 0-2 /hpf (0-2); Squamous Epithelial Cell Urine 0-5 /hpf (0-5); WBC Urine 0-5 /hpf (0-5)
[2024-07-15 09:36] LABS: Alanine Aminotransferase 40 U/L (0-41); Albumin Level 3.9 g/dL (3.5-5.2); Alkaline Phosphatase 45 U/L (40-130); Anion Gap 14.1 (5-19); Aspartate Amino Transferase 42 U/L (0-40); Blood Urea Nitrogen 18 mg/dL (8-23); Calcium 8.9 mg/dL (8.5-10.5); Carbon Dioxide 27 mmol/L (22-29); Chloride 103 mmol/L (98-107); Creatinine Clr Calc Pharmacy 86.0416; Globulin 3.6 g/dL (1.3-4.6); Glomerular Filtration Rate 74.3 mL/min (90-130); Glucose 99 mg/dL (65-115); Osmolality Calculated 292 mOsm/kg (285-295); Potassium 4.1 mmol/L (3.5-5.1); Sodium 140 mmol/L (136-145); Total Bilirubin 0.7 mg/dL (0.15-1.2); Total Protein 7.5 g/dL (6.6-8.7)
[2024-07-15 10:00] LABS: Covid PCR NEGATIVE (Negative); Influenza A NEGATIVE (Negative); Influenza B NEGATIVE (Negative); Respiratory Syncytial Virus Ce NEGATIVE (Negative)
--- NOTE | 2024-07-15 10:12 | ECG_ITS ---
[facility] 2024-07[facility]15 Pat Name: Ron Davila Department: Room: Gender: Male Collar Packer: : [id number] Requested By: Мария Shah Order Number: [id number] Reading MD: ROSALIO MORENO Measurements Intervals [place] Rate: 57 P: 51 TX: 193 QRS: 39 QRSD: 89 T: 245 QT: 426 QTc: 418 Interpretive Statements SINUS BRADYCARDIA MODERATE T-WAVE ABNORMALITY, CONSIDER LATERAL ISCHEMIA [-0.1+ mV T-WAVE IN I/aVL/V5/V6] MODERATE T-WAVE ABNORMALITY, CONSIDER INFERIOR ISCHEMIA [-0.1+ mV T-WAVE IN II/aVF] Compared to ECG 04/25/2020 18:40:12 Sinus rhythm no longer present Sinus arrhythmia no longer present T-wave abnormality still present Possible ischemia still present Electronically Signed On 07-15-2024 20:48:33 HELPDESK ANALYST by ROSALIO MORENO [email or web address]
--- NOTE | 2024-07-15 11:02 | W.ED.GENADLT ---
HPI - General Adult General: Chief complaint: General Medical Stated complaint: high bp Time Seen by Provider: 07/15/24 08:44 History of Present Illness: This patient is a 68 year old presenting with some episodes of chills last night and this morning. He is generally very healthy and fit and has not had any other symptoms. No cough, chest pain, shortness of breath, nausea, vomiting, urinary symptoms, rash, or sore throat. He has some chronic sinus issues and has a small amount of pressure over his left eye but that is not new. He also fell off some hay gumaro a week ago and hit the back of his head. He estimates it was about a three foot fall onto a wooden floor. He denied LOC by admits he was dazed. He did not feel like he had a concussion. He is not on blood thinners. He did start Meloxicam about a month ago for OA pain. Related Data Home Medications ?Medication ?Instructions ?Recorded ?Confirmed ascorbic acid (vitamin C) 1,000 mg 1,000 mg PO DAILY 04/22/20 07/15/24 tablet (Vitamin C) doxycycline hyclate 100 mg capsule 100 mg PO TID 06/16/23 07/15/24 nystatin 500,000 unit tablet 4 unit PO DAILY 07/15/24 07/15/24 Previous Rx's ?Medication ?Instructions ?Recorded sildenafil 100 mg tablet 50 - 100 mg (0.5 - 1 x 100 mg) PO 04/11/23 Q24H PRN sexual activity #30 tabs diclofenac sodium 1 % topical gel 2 g topical QID #100 grams 06/16/23 (Voltaren Arthritis Pain) meloxicam 15 mg tablet 15 mg PO DAILY #60 tabs 04/18/24 Allergies Allergy/AdvReac Type Severity Reaction Status Date / Time hydrocodone Allergy Severe unknown Verified 04/20/24 08:58 PFS ED PFSH: Medical History Arthritis 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 Erectile dysfunction Degenerative joint disease (DJD) of lumbar spine Shoulder pain with history of repair of rotator cuff Arthralgia of back Arthralgia of cervical spine Arthralgia of both hands Surgical History H/O arthroscopy of right knee History of arthroscopy of right shoulder Family History Unknown Arthritis Hypertension Father Cancer Prostate Denies family history of Lupus (systemic lupus erythematosus) Rheumatoid arthritis Diabetes CAD (coronary artery disease) Stroke Social History Smoking and tobacco/nicotine status: never used tobacco/nicotine Second hand smoke exposure: No Alcohol intake: current Alcohol intake frequency: 0-2 Drinks per Day Alcohol type: wine Substance/Drug Use: never Adopted: No Caregiver/support person: No Lives independently: Yes Household members: spouse Housing: House Marital status: Do you think of yourself as: Straight/Heterosexual Current gender identity: Male Physical Exam Const: COMMON NORMALS: no acute distress, patient oriented x3, no limitations and alert GENERAL APPEARANCE: cooperative and comfortable HENMT: HEAD & SCALP: normal to inspection FACE & SINUS: normal facial exam Eye: GENERAL EYE: appearance normal, both eyes and all related structures Neck/C-Spine: COMMON NORMALS: supple, no meningeal signs and no JVD Chest: COMMONS NORMALS: normal inspection of the chest Resp: COMMON NORMALS: normal respiratory effort, No use of accessory muscles and clear to auscultation bilaterally AUSCULTATION: clear to auscultation bilaterally Cardio: COMMON NORMALS: no JVD, regular rate, regular rhythm and No murmurs present (Cardio) RATE: regular rate RHYTHM: regular rhythm GI: COMMON NORMALS: Normal to inspection, nondistended, normoactive bowel sounds present, Soft to palpation and non-tender INSPECTION: Yes normal to inspection AUSCULTATION: Yes normoactive bowel sounds PALPATION: Yes Soft to palpation Back/Pelvis: COMMON NORMALS: thoracic and lumbar spine normal to inspection Extremity: COMMON NORMALS: normal to inspection Neuro: COMMON NORMALS: patient oriented x3, moves all extremities, no focal motor deficits and no sensory deficits noted SENSORIUM/ORIENTATION: Yes alert MENINGEAL SIGNS: Yes no meningeal signs Psych: COMMON NORMALS: mental status grossly normal, cooperative and normal affect Skin: COMMON NORMALS: no rashes or lesions noted and turgor normal GENERAL SKIN EXAM: no rashes or lesions noted and turgor normal Course Vital Signs: Vital signs: Vital Signs Temperature 97.5 F L 07/15/24 07:54 Pulse Rate 53 L 07/15/24 11:12 Respiratory Rate 16 07/15/24 07:54 Blood Pressure 153/101 07/15/24 11:12 Pulse Oximetry 96 07/15/24 11:12 Oxygen Delivery Me thod Room Air 07/15/24 09:21 MDM - General Adult Medical Decision Making The patient's exam and labs are unremarkable. He is not having any symptoms in the ED. We did a CT of his head and neck due to the fall and those were normal. EKG is not normal but he has a history of a cardiac anomoly and when I compared the EKG to a prior it is unchanged. I have no good explanation for his chills. He says that he has Lyme disease and sees infectious disease in [place]. He thinks this could be the lyme's flaring up. He has doxyxcyline to take when that happens and I think it is quite reasonable to start that. Lab Data 07/15/24 09:13 07/15/24 09:13 Radiology Impressions Cervical Spine CT 07/15/24 09:02 IMPRESSION: No acute findings. Head CT 07/15/24 09:02 IMPRESSION: No acute intracranial abnormality. Laboratory Results WBC 3.86 10^3/uL (3.29-11.43) 07/15/24 09:13 RBC 4.99 10^6/uL (3.85-5.65) 07/15/24 09:13 Hgb 14.50 g/dL (11.27-16.99) 07/15/24 09:13 Hct 45.1 % (37-53) 07/15/24 09:13 MCV 90.4 fl (82-101) 07/15/24 09:13 MCH 29.1 pg (27-33) 07/15/24 09:13 MCHC 32.2 g/dL (30-55) 07/15/24 09:13 RDW 14.2 % (12.1-15.1) 07/15/24 09:13 Plt Count 229 10^3/cmm (157-399) 07/15/24 09:13 MPV 9.2 fL (7.4-10.4) 07/15/24 09:13 Neut % (Auto) 47.2 % 07/15/24 09:13 Lymph % (Auto) 43.8 % 07/15/24 09:13 [place] % (Auto) 5.4 % 07/15/24 09:13 Eos % (Auto) 2.6 % 07/15/24 09:13 Baso % (Auto) 1.0 % 07/15/24 09:13 Neut # (Auto) 1.82 10^3/uL (1.8-7.7) 07/15/24 09:13 Lymph # (Auto) 1.7 10^3/uL (0.8-4.8) 07/15/24 09:13 [place] # (Auto) 0.2 10^3/uL (0.2-0.9) 07/15/24 09:13 Eos # (Auto) 0.1 10^3/uL (0.0-0.8) 07/15/24 09:13 Baso # (Auto) 0.0 10^3/uL (0.0-0.1) 07/15/24 09:13 Nucleated RBC % (auto) 0 % 07/15/24 09:13 Nucleated RBCs # 0.0 /100WBC 07/15/24 09:13 Sodium 140 mmol/L (136-145) 07/15/24 09:13 Potassium 4.1 mmol/L (3.5-5.1) 07/15/24 09:13 Chloride 103 mmol/L (98-107) 07/15/24 09:13 Carbon Dioxide 27 mmol/L (22-29) 07/15/24 09:13 Anion Gap 14.1 (5-19) 07/15/24 09:13 BUN 18 mg/dL (8-23) 07/15/24 09:13 Creatinine 1.0 mg/dL (0.7-1.2) 07/15/24 09:13 GFR Calculation 74.3 mL/min (90-130) L 07/15/24 09:13 Glucose 99 mg/dL (65-115) 07/15/24 09:13 Calculated Osmolality 292 mOsm/kg (285-295) 07/15/24 09:13 Calcium 8.9 mg/dL (8.5-10.5) 07/15/24 09:13 Total Bilirubin 0.7 mg/dL (0.15-1.2) 07/15/24 09:13 AST 42 U/L (0-40) H 07/15/24 09:13 ALT 40 U/L (0-41) 07/15/24 09:13 Alkaline Phosphatase 45 U/L (40-130) 07/15/24 09:13 Total Protein 7.5 g/dL (6.6-8.7) 07/15/24 09:13 Albumin 3.9 g/dL (3.5-5.2) 07/15/24 09:13 Globulin 3.6 g/dL (1.3-4.6) 07/15/24 09:13 Urine Color Yellow (Yellow) 07/15/24 09:17 Urine Appearance Clear (CLEAR) 07/15/24 09:17 Urine pH 7.5 (5-7) 07/15/24 09:17 Ur Specific [place] 1.009 (1.005-1.030) 07/15/24 09:17 Urine Protein Negative (Negative) 07/15/24 09:17 Urine Glucose (UA) Negative (Normal) 07/15/24 09:17 Urine Ketones Negative (Negative) 07/15/24 09:17 Urine Blood Negative (Negative) 07/15/24 09:17 Urine Nitrate Negative (Negative) 07/15/24 09:17 Urine Bilirubin Negative (Negative) 07/15/24 09:17 Urine Urobilinogen 0.2 mg/dL (Negative) 07/15/24 09:17 Ur Leukocyte Esterase Negative (Negative) 07/15/24 09:17 Urine RBC 0-2 /hpf (0-2) 07/15/24 09:17 Urine WBC 0-5 /hpf (0-5) 07/15/24 09:17 Ur Squamous Epith Cells 0-5 /hpf (0-5) 07/15/24 09:17 Amorphous Sediment Not Reportable 07/15/24 09:17 Urine Bacteria None seen /hpf (NONE) 07/15/24 09:17 Hyaline Casts 0-4 /lpf H 07/15/24 09:17 Coronavirus (PCR) Negative (Negative) 07/15/24 09:13 Influenza A (PCR) Negative (Negative) 07/15/24 09:13 Influenza Type B (PCR) Negative (Negative) 07/15/24 09:13 RSV (PCR) Negative (Negative) 07/15/24 09:13 All radiology interpretation(s) finalized by discharge Discharge Plan Discharge Patient Disposition: Home Clinical Impression: H/o Lyme disease, Chill Hypertension Qualifiers: Hypertension type: primary hypertension Qualified Code(s): I10 - Essential (primary) hypertension Condition: Stable Prescriptions: No Action doxycycline hyclate 100 mg capsule 100 mg PO TID diclofenac sodium [Voltaren Arthritis Pain] 1 % gel 2 g topical QID Qty: 100 0RF Rx Instructions: apply to single elbow, wrist or hand; for hand includes palm/fingers/back of hand sildenafil 100 mg tablet 50 - 100 mg PO Q24H MDD 100mg PRN (Reason: sexual activity) Qty: 30 5RF Rx Instructions: administer 30 minutes to 4 hours before activity meloxicam 15 mg tablet 15 mg PO DAILY Qty: 60 1RF ascorbic acid (vitamin C) [Vitamin C] 1,000 mg Tablet 1,000 mg PO DAILY nystatin 500,000 unit tablet 4 unit PO DAILY Rx Instructions: TAKE FOUR TABLETS BY MOUTH ONCE DAILY for intestinal yeast for 90 DAYS Discharge Orders: Discharge ED (Routine); Ordered 07/15/24 Ordered By: Мария Person Referrals: Beny Rankin MD [Primary Care Provider] - Discharge Diet: Advance as tolerated Discharge Activity: Increase activity as tolerated Patient Instructions: Opioid Safety, Pain Management Print Language: French Coding Level of Care Code ED Sales And Merchandising Representative for Austin Starr
[2024-07-15 11:12] VITALS: BP 153/101; PULSE 53; O2SAT 96
== END 2024-07-15 11:17 | disposition home or self-care (01) ==
PROVIDERS: Emergency Provider Emergency Medicine; PCP Family Medicine
DX: R68.83 Chills (without fever) (principal); I10 Essential (primary) hypertension; A69.20 Lyme disease, unspecified; Z11.52 Encounter for screening for COVID-19
CPT/HCPCS: 36415; 70450; 72125; 80053; 81001; 85025; 87637; 93005; 99284

== ENCOUNTER → 2024-12-11 09:21 | Outpatient (BNVA) | payer MEDICARE, SELFPAY | PROVIDERS: PCP Family Medicine; Visit Provider Nurse Practitioner Family | DX: D22.5 Melanocytic nevi of trunk (principal); L81.4 Other melanin hyperpigmentation; L82.1 Other seborrheic keratosis; D48.5 Neoplasm of uncertain behavior of skin; L57.0 Actinic keratosis | CPT/HCPCS: 11102; 17000; 99203 ==

== ENCOUNTER 2024-12-16 15:54 | Emergency (ER) | payer MEDICARE, SELFPAY ==
[2024-12-16 15:59] VITALS: BP 160/92; PULSE 59; TEMP 36.5; O2SAT 96
--- OUTSIDE RECORDS SUMMARY | 2024-12-16 15:59 | XMS_ITS | Encounter Summary ---
Author Organization [facility] Address [address] [place] [address] Care Team Providers Care Soil Conservation Aide Name Role Phone Unavailable Primary Care Provider Unavailabl e Encounter Details Date Type Department Care Team (Latest Contact Info) Description 02/15/2000 Outpatient Historical [facility] Adam Verdin Jr., MD [address] [place] [address] Allergic rhinitis, cause unspecified (Primary Dx); Acute serous otitis media Social History Tobacco Use Types Packs/Day Years Used Date Smoking Tobacco: Never Assessed Sex and Gender Information Value Date Recorded Sex Assigned at Not on file 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
--- OUTSIDE RECORDS SUMMARY | 2024-12-16 15:59 | XMS_ITS | Clinical Summary ---
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
--- OUTSIDE RECORDS SUMMARY | 2024-12-16 15:59 | XMS_ITS | Encounter Summary ---
Author Organization [facility] Address [address] [place] [address] Care Team Providers Care Mortgage Loan Processing Clerk Name Role Phone Unavailable Primary Care Provider Unavailabl e Encounter Details Date Type Department Care Team (Latest Contact Info) Description 11/30/1999 Outpatient Historical [facility] Adam Verdin Jr., MD [address] [place] [phone] Acute sinusitis, unspecified (Primary Dx) Social History Tobacco Use Types Packs/Day Years Used Date Smoking Tobacco: Never Assessed Sex and Gender Information Value Date Recorded Sex Assigned at Not on file 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
--- OUTSIDE RECORDS SUMMARY | 2024-12-16 15:59 | XMS_ITS | Clinical Summary ---
Author Organization [facility] Address [address] Guerrero: Epic Prelude ADT JESSICA AGUDELO [address] Care Team Providers Care Race Steward Name Role Phone Unavailable Primary Care Provider Unavailabl e Medications cyclobenzaprine (FLEXERIL) 10 mg tabletIndicatio ns:Impingement syndrome of right shoulder Take 1 Tablet (10 mg) by mouth 3 times daily as needed for Spasm. 28 Tablet 04/05/2022 10:15 AM CDT 04/05/2022 Active doxycycline hyclate (VIBRAMYCIN) 100 mg capsule TAKE 1-2 CAPSULES BY MOUTH TWICE DAILY FOR 30 DAYS AVOID SUNBURN! wear A hat, gloves, long sleeves when going OUT. 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 Gender Identity Not on file Sexual Orientation Not on file Last Filed Vital Signs Vital Sign Reading Time Taken Comments Blood Pressure 136/80 08/10/2022 11:05 AM INVESTMENT TRADER Pulse - - Temperature - - Respiratory Rate - - Oxygen Saturation - - Inhaled Oxygen Concentration - - Weight 95.3 kg (210 lb) 08/10/2022 11:05 AM INVESTMENT TRADER Height 185.4 cm (6' 1 ) 08/10/2022 11:05 AM INVESTMENT TRADER Body Mass Index 27.71 08/10/2022 11:05 AM INVESTMENT TRADER Plan of Treatment Health Maintenance Due Date Last Done Comments DTAP/TDAP/TD VACCINES (1 - Tdap) 12/10/1974 COLORECTAL SCREENING 12/10/2000 Colorectal Cancer Screening 12/10/2000 FIT-DNA Q 3 years 12/10/2000 FIT/FOBT Q 1 year 12/10/2000 Flex Sig/CT Colonography Q 5 years 12/10/2000 PNEUMOCOCCAL VACCINE 50+ YEARS (1 of 1 - PCV) 12/11/19 06 ZOSTER VACCINE (1 of 2) 12/10/2005 INFLUENZA VACCINE (#1) 2025 02/04/2014 RSV VACCINE (60+ or ) (1 - 1-dose 75+ series) 12/10/2030 Insurance MEDICARE PART A AND B [facility] [id number] RX BERNAL PLANS (INTERNAL) [facility] Internal Plans
--- OUTSIDE RECORDS SUMMARY | 2024-12-16 15:59 | XMS_ITS | Encounter Summary ---
Author Organization [facility] Address [address] [place] [address] Care Team Providers Care Barrel Tester And Drainer Name Role Phone Unavailable Primary Care Provider Unavailabl e Encounter Details Date Type Department Care Team (Latest Contact Info) Description 01/20/2001 Outpatient Historical [facility] Adam Verdin Jr., MD [address] [place] [phone] Osteoarthrosis, unspecified whether generalized or localized, shoulder region (Primary Dx); Pain in joint, shoulder region; Screening for lipoid disorders; Screening for other and unspecified endocrine, nutritional, metabolic, and immunity disorders Social History Tobacco Use Types Packs/Day Years Used Date Smoking Tobacco: Never Assessed Sex and Gender Information Value Date Recorded Sex Assigned at Not on file 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
--- OUTSIDE RECORDS SUMMARY | 2024-12-16 16:00 | XMS_ITS | Patient Health Record ---
Author Organization [facility] Address [address] [place], [place] [id number] Care Team Providers Care Hand Former Name Role Phone Barrett Gamboa DO Primary Care Provider Toribio Varma MD Unavailable [phone] Brock Horn MD Unavailable Unavailable Reason For Referral No Information Social History Tobacco Use: Social History Observation Description Date Details (start date - stop date) Never Smoker NA - NA alcohol Question Answer Notes Did you have a drink contain ing alcohol in the past year? Yes Points 3 Interpretation Negative How often did you have a dri nk containing alcohol in the past year? Two to three times per week (3 points) How many drinks did you have on a typical day when you were drinking in the past year? 1 or 2 (0 points) How often did you have six o r more drinks on one occasion in the past year? Never (0 points) Tobacco use: Question Answer Notes : nonsmoker Problems Problem Type SNOMED Code ICD Code Onset Dates Problem Status W/U Status Risk Notes Problem Spasm (94859328) Muscle spasm (728.85) Active confirmed Problem Hypersomnia (41955548) Hypersomnia (780.54) Active confirmed Problem Limb pain (49857727) Limb pain (729.5) Active confirmed Problem Displacement of lumbar intervertebral disc without myelopathy (51812082) Lumbar (w/out myelopathy) intervertebral disc disorder (722.10) Active confirmed Problem Lumbosacral spondylosis without myelopathy (93390036) Lumbosacral spondylosis without myelopathy (721.3) Active confirmed Problem Long-term drug therapy (711618423) LONG-TERM USE MEDS NEC (V58.69) Active confirmed r/o substance abuse Problem Spondylolisthesis (314057843) Spondylolisthesis (738.4) Active confirmed Problem Anxiety state (659035467) Anxiety State, other, specified: procedure related (300.09) Active confirmed Problem Solitary sacroiliitis (169277269) Sacroiliitis (720.2) Active confirmed Problem Low back pain (904956024) Low back pain (724.2) Active confirmed Plan Of Treatment No Information Insurance Providers Payer Name Payer Address Payer Phone Subscriber Number Group Number Insured Name Patient Relationship to Insured Coverage Start Date Coverage End Date [facility] [address] [place] [phone] [id number] Ron Davila Self - patient is the insured Medical (General) History Medical History History ICD Code Hip pain Arthritis Fractured nose Headaches Low back pain Lumbar radiculopathy Parasthesias Spondylolisthesis Lumbar disc degeneration Spondylosis Surgical History Surgery Date(Month/Year) Knee surgery, left Rotator cuff repair, right Hospitalization History Reason Date(Month/Year) Kidney stone
[2024-12-16 18:35] VITALS: BP 146/94; PULSE 62; O2SAT 96
--- NOTE | 2024-12-16 19:19 | ED_ITS ---
HPI - Eye Problem General: Chief complaint: Eye Problems Stated complaint: vision issues in L eye Time Seen by Provider: 12/16/24 18:13 History of Present Illness: Patient is a 69-year-old gentleman underwent right shoulder surgery 3 weeks ago that all of a sudden 48 hours ago had floaty's in his left thigh and a graying vision. He went to urgent care was seen by his primary care physician, that recommended to [facility] for further evaluation and concern for retinal detachment. Patient returns today because after his nap, when he was lying on his left eye that is the eye in question, he stated the floaty's were gone, and he just had russell vision. He does not describe a curtain, or blackening vision. Associated symptoms: Denies fever(s), headache(s), nausea, neck pain or vomiting Related Data Home Medications ?Medication ?Instructions ?Recorded ?Confirmed ascorbic acid (vitamin C) 1,000 mg 1,000 mg PO DAILY 1 06/22/19 12/15/24 tablet (Vitamin C) doxycycline hyclate 100 mg capsule 100 mg PO TID 06/1612/15/24 nystatin 500,000 unit tablet 4 unit PO DAILY 07/15/24 12/15/24 Previous Rx's ?Medication ?Instructions ?Recorded diclofenac sodium 1 % topical gel 2 g topical QID #100 grams 06/16/23 (Voltaren Arthritis Pain) meloxicam 15 mg tablet 15 mg PO DAILY #60 tabs 04/06 08/27 sildenafil 100 mg tablet 50 - 100 mg (0.5 - 1 x 100 m g) PO 08/28/24 Q24H PRN sexual activity #30 tabs Allergies Allergy/AdvReac Type Severity Reaction Status Date / Time hydrocodone Allergy Severe unknown Verified 12/16/24 16:04 Review of Systems General: Reports: 10 or more systems reviewed and unremarkable except in HPI and below Const: Denies: fever(s) or chills Eyes: Reports: change in vision, blurry vision, blind spots and photophobia ENMT: Denies: throat pain Card: Denies: chest pain or palpitations Resp: Denies: dyspnea or productive cough GI: Denies: abdominal pain, nausea or vomiting : Denies: flank pain or difficulty urinating Musc: Reports: joint pain; Denies: neck pain, extremity pain or extremity swelling Skin/Breast: Denies: rash or pruritus Neuro: Denies: headache(s) or numbness in extremities PFSH ED PFSH: Medical History (Updated 12/16/24 @ 19:23 by RALPH Harrington) Arthritis 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 Erectile dysfunction Degenerative joint disease (DJD) of lumbar spine Shoulder pain with history of repair of rotator cuff Arthralgia of back Arthralgia of cervical spine Arthralgia of both hands Surgical History H/O arthroscopy of right knee History of arthroscopy of right shoulder Family History Unknown Arthritis Hypertension Father Cancer Prostate Denies family history of Lupus (systemic lupus erythematosus) Rheumatoid arthritis Diabetes CAD (coronary artery disease) Stroke Social History Smoking and tobacco/nicotine status: never used tobacco/nicotine Second hand smoke exposure: No Alcohol intake: current Alcohol intake frequency: 0-2 Drinks per Day Alcohol type: wine Substance/Drug Use: never Adopted: No Caregiver/support person: No Lives independently: Yes Household members: spouse Housing: House Marital status: Do you think of yourself as: Straight/Heterosexual Current gender identity: Male Physical Exam Const: COMMON NORMALS: patient oriented x3 HENMT: COMMON NORMALS: normocephalic and atraumatic HEAD & SCALP: normocephalic and atraumatic Eye: COMMON NORMALS: Equal, round and reactive pupils present and no papilledema GENERAL EYE: normal light reflex SCLERA: sclerae normal PUPIL: Yes Equal, round and reactive pupils present DIRECT OPHTHALMOSCOPY: Yes normal light reflex, Yes no papilledema and Yes optic disc abnormality positive left notching of optic disc (7 oclock) Lymph: LYMPHATIC: no lymphadenopathy noted Chest: COMMONS NORMALS: normal inspection of the chest and normal palpation of entire chest wall Resp: COMMON NORMALS: normal respiratory effort and No retractions Cardio: COMMON NORMALS: regular rate and regular rhythm RATE: regular rate RHYTHM: regular rhythm GI: COMMON NORMALS: Normal to inspection, nondistended, normoactive bowel sounds present and Soft to palpation PALPATION: Yes Soft to palpation : COMMON NORMALS: Yes no CVA tenderness BLADDER/KIDNEY EXAM: Yes no CVA tenderness Back/Pelvis: COMMON NORMALS: no CVA tenderness Extremity: COMMON NORMALS: normal to inspection, full ROM and capillary refill normal Neuro: COMMON NORMALS: patient oriented x3, CN's II-XII intact bilaterally and moves all extremities Psych: COMMON NORMALS: mental status grossly normal and Normal thought process present THOUGHT PROCESS: Normal thought process present Skin: COMMON NORMALS: no rashes or lesions noted and no wounds GENERAL SKIN EXAM: no rashes or lesions noted Course Vital Signs: Vital signs: Vital Signs Temperature 97.7 F 12/16/24 15:59 Pulse Rate 60 12/16/24 20:20 Blood Pressure 124/79 12/16/24 20:20 Pulse Oximetry 98 12/16/24 20:20 Oxygen Delivery Me thod Room Air 12/16/24 15:59 MDM - Eye Problem Medical Decision Making Patient is 69-year-old gentleman with concern of partial retinal attachment the day before presentation. He took a nap, laying on his face, and awoke with different symptoms of more of a russell vision/blurry vision. I discussed the case with on-call ophthalmology, Barrett Swanson that recommended patient coming to the office at [address] Santos. Patient is acceptable to this. It appears more consistent with a macular tear rather than retinal detachment. As well, Barrett Swanson did note that if it was retinal, patient would need to go to a retinal specialist, as I am aware as well. Patient will follow-up in the morning for further directions. Patient has been informed of all of the above and all of him and his 's questions were answered to their satisfaction. 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 Condition: Stable Prescriptions: No Action doxycycline hyclate 100 mg capsule 100 mg PO TID diclofenac sodium [Voltaren Arthritis Pain] 1 % gel 2 g topical QID Qty: 100 0RF Rx Instructions: apply to single elbow, wrist or hand; for hand includes palm/fingers/back of hand meloxicam 15 mg tablet 15 mg PO DAILY Qty: 60 1RF sildenafil 100 mg tablet 50 - 100 mg PO Q24H MDD 100mg PRN (Reason: sexual activity) Qty: 30 5RF Rx Instructions: administer 30 minutes to 4 hours before activity ascorbic acid (vitamin C) [Vitamin C] 1,000 mg Tablet 1,000 mg PO DAILY nystatin 500,000 unit tablet 4 unit PO DAILY Rx Instructions: TAKE FOUR TABLETS BY MOUTH ONCE DAILY for intestinal yeast for 90 DAYS Discharge Orders: Discharge ED (Routine); Ordered 12/16/24 Ordered By: Tracie Alfred Referrals: Toribio Baum [Physician, Opthalmology] Referral Note: Dr. Stark is there tomorrow. Please go at 8 AM Beny Rankin MD [Primary Care Provider, [facility]] Discharge Diet: Usual diet Discharge Activity: Resume usual activity Patient Instructions: Patient Portal & Mary Instructions Activity Restrictions/Additional Instructions: Lay towards the left side of your face Go to the office above to see Dr. Santos at 8 AM. Return to ED if you have black in vision. Print Language: Armenian Coding Level of Care Code ED Film Library Clerk for Austin Starr
[2024-12-16 20:20] VITALS: BP 124/79; PULSE 60; O2SAT 98
== END 2024-12-16 20:21 | disposition home or self-care (01) ==
PROVIDERS: Emergency Provider Physician Assistant; PCP Family Medicine
DX: H35.22 Other non-diabetic proliferative retinopathy, left eye (principal)
CPT/HCPCS: 99282

== ENCOUNTER 2025-01-09 11:18 | Outpatient (RCR) | payer MEDICARE, SELFPAY | END 2025-02-03 23:59 | disposition home or self-care (01) | LOC: SPT 11:18 | PROVIDERS: PCP Family Medicine; Visit Provider Orthopaedic Surgery | DX: Z47.1 Aftercare following joint replacement surgery (principal); Z96.611 Presence of right artificial shoulder joint | CPT/HCPCS: 97110; 97161 ==

== ENCOUNTER 2025-02-04 05:00 | Outpatient (RCR) | payer MEDICARE, SELFPAY | END 2025-03-05 23:59 | disposition home or self-care (01) | LOC: SPT 05:00 | PROVIDERS: PCP Family Medicine; Visit Provider Orthopaedic Surgery | DX: Z47.1 Aftercare following joint replacement surgery (principal); Z96.611 Presence of right artificial shoulder joint | CPT/HCPCS: 97110 ==

== ENCOUNTER 2025-03-06 06:30 | Outpatient (RCR) | payer MEDICARE, SELFPAY | END 2025-03-14 10:28 | disposition home or self-care (01) | LOC: SPT 06:30 | PROVIDERS: PCP Family Medicine; Visit Provider Orthopaedic Surgery | DX: Z47.1 Aftercare following joint replacement surgery (principal); Z96.611 Presence of right artificial shoulder joint | CPT/HCPCS: 97110 ==

== ENCOUNTER 2025-04-08 08:39 | Outpatient (CLI) | payer MEDICARE, SELFPAY ==
[2025-04-08 09:12] LABS: Hematocrit 44.6 % (37-53); Hemoglobin 14.50 g/dL (11.27-16.99); Mean Corpuscular HGB Conc 32.5 g/dL (30-55); Mean Corpuscular Hemoglobin 28.4 pg (27-33); Mean Corpuscular Volume 87.5 fl (82-101); Nucleated Red Blood Cells % 0 %; Platelet Count 249 10^3/cmm (157-399); Red Blood Count 5.10 10^6/uL (3.85-5.65); White Blood Count 3.82 10^3/uL (3.29-11.43)
[2025-04-08 09:46] LABS: Alanine Aminotransferase 30 U/L (0-41); Albumin Level 4.2 g/dL (3.5-5.2); Alkaline Phosphatase 52 U/L (40-130); Anion Gap 11.4 (5-19); Aspartate Amino Transferase 34 U/L (0-40); Blood Urea Nitrogen 19 mg/dL (8-23); Calcium 9.5 mg/dL (8.5-10.5); Carbon Dioxide 29 mmol/L (22-29); Chloride 102 mmol/L (98-107); Globulin 3.9 g/dL (1.3-4.6); Glucose 80 mg/dL (65-115); Lipase 46 U/L (13-60); Osmolality Calculated 287 mOsm/kg (285-295); Potassium 4.4 mmol/L (3.5-5.1); Prostate Specific Antigen 0.801 ng/mL (0-4); Sodium 138 mmol/L (136-145); Total Protein 8.1 g/dL (6.6-8.7)
[2025-04-09 08:20] LABS: Lymes IGG WB <0.90 index
== END 2025-04-08 08:40 | disposition home or self-care (01) ==
PROVIDERS: PCP Family Medicine; Visit Provider Family Medicine
DX: Z13.6 Encounter for screening for cardiovascular disorders (principal); N40.0 Benign prostatic hyperplasia without lower urinary tract symptoms
CPT/HCPCS: 36415; 80053; 83690; 84153; 85025; 86617